=== PATIENT | female | born 1970 | race Caucasian/White ===

== ENCOUNTER 2017-07-30 17:35 | Inpatient (IN) | payer SELFPAY ==
[~2017-07-30] VITALS: Ht 147.3 cm; Wt 70.3 kg
[~2017-07-30 17:35] MED LIST: CLON.5; LEVA500T33; TRAM50TA PO
[2017-07-30 17:48] VITALS: BP 115/72; PULSE 118; RESP 20; TEMP 98.2; O2SAT 100
[2017-07-30 18:32] VITALS: BP 115/71; PULSE 120; RESP 19; O2SAT 100
[2017-07-30] MEDS ORDERED: EXCETAB31 (18:42)
[2017-07-30] MEDS ORDERED: IBUP1TAB7 PO (18:42)
[2017-07-30] MEDS ORDERED: GABA600T PO (18:42)
[2017-07-30] MEDS ORDERED: PRAM0.25 PO (18:42)
[2017-07-30] MEDS ORDERED: FURO40TA PO (18:42)
[2017-07-30] MEDS ORDERED: HYDR-3516 PO (18:42)
[2017-07-30] MEDS ORDERED: CYCL10TA PO (18:42)
[2017-07-30 19:08] LABS: AUTOMATED NEUTROPHIL # 24.2 TH/MM3 (1.8-7.7); BASOPHIL # 0.1 TH/MM3 (0-0.2); BASOPHIL % 0.5 % (0.0-2.0); EOSINOPHIL # 0.3 TH/MM3 (0-0.4); EOSINOPHIL % 1.2 % (0.0-4.0); HEMATOCRIT 35.2 % (35.0-46.0); HEMOGLOBIN 12.1 GM/DL (11.6-15.3); LYMPH % 3.5 % (9.0-44.0); LYMPHOCYTE # 0.9 TH/MM3 (1.0-4.8); MEAN CELL VOLUME 92.3 FL (80.0-100.0); MEAN CORPUSCULAR HEMOGLOBIN 31.8 PG (27.0-34.0); MEAN CORPUSCULAR HGB CONC 34.4 % (32.0-36.0); MEAN PLATELET VOLUME 8.4 FL (7.0-11.0); MONOCYTE # 0.8 TH/MM3 (0-0.9); NEUT % 91.8 % (16.0-70.0); PLATELET COUNT 239 TH/MM3 (150-450); RED BLOOD COUNT 3.81 MIL/MM3 (4.00-5.30); RED CELL DISTRIBUTION WIDTH 13.5 % (11.6-17.2); WHITE BLOOD COUNT 26.3 TH/MM3 (4.0-11.0)
[2017-07-30 19:15] LABS: INTERNATIONAL NORMALIZED RATIO 1.1 RATIO
[2017-07-30 19:24] LABS: BACTERIA, URINE OCC /hpf; BILIRUBIN, URINE NEG (NEG); BLOOD, URINE TRACE (NEG); GLUCOSE,URINE NEG (NEG); HYALINE CAST, URINE 5 /lpf (RARE); KETONE, URINE NEG (NEG); MUCUS URINE FEW /lpf (OCC); NITRITE,URINE NEG (NEG); PH, URINE 5.5 (5.0-8.5); SQUAMOUS EPITHELIAL CELL URINE 4 /hpf (0-5); URINE COLOR LIGHT-YELLOW (YELLW/STRAW); URINE LEUKOCYTE ESTERASE LARGE (NEG); WHITE BLOOD CELL CAST, URINE 10 /lpf
[2017-07-30 19:29] LABS: ALBUMIN 2.8 GM/DL (3.4-5.0); ALT (GPT) 67 U/L (10-53); AST (GOT) 61 U/L (15-37); BICARBONATE 26.8 MEQ/L (21.0-32.0); BLOOD UREA NITROGEN 37 MG/DL (7-18); CALCIUM 10.1 MG/DL (8.5-10.1); CHLORIDE 101 MEQ/L (98-107); CREATININE 3.14 MG/DL (0.50-1.00); GLOMERULAR FILTRATION RATE 16 ML/MIN (>89); GLUCOSE,RANDOM 87 MG/DL (74-106); SODIUM (NA) 137 MEQ/L (136-145)
[2017-07-30 19:32] LABS: ALKALINE PHOSPHATASE 234 U/L (45-117); TOTAL BILIRUBIN ADULT 0.3 MG/DL (0.2-1.0); TOTAL PROTEIN 8.4 GM/DL (6.4-8.2)
[2017-07-30] MEDS ORDERED: ACETAMINOPHEN 500 MG CPLT PO ONE (20:00)
[2017-07-30] MEDS ORDERED: SODIUM CHLOR 0.9% 1000 ML INJ 1,000 ML IV SCH (20:06)
--- NOTE | 2017-07-30 20:06 | PD ---
HPI Chief Complaint: General Weakness Time Seen by Provider: 18:51 Travel History International Travel<30 days: No Contact w/Intl Traveler<30days: No Traveled to known affect area: No History of Present Illness HPI 46-year-old female presents to the ED for evaluation of intermittent fevers, dull, frontal headache, abdominal pain, bloating, nausea and vomiting 4 days. She states that she measured a fever of 103 by oral thermometer 4 days ago. She denies cold or flu symptoms, chest pain, palpitations, shortness of breath. She denies melena, hematochezia. Endorses 1 episode of loose stools. She denies hematuria, dysuria, vaginal odor, discharge, back pain. She states that she is a social drinker, occasionally has a glass of wine, last alcoholic drink approximately 3 weeks ago. She endorses history of tubal ligation, denies risk of . Denies other abdominal surgery. No treatment attempted at home. 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) Headaches: Yes Hepatitis: No Hiatal Hernia: No Hypertension: No Immune Disorder: Yes Kidney Stones: No Musculoskeletal: No Neurologic: Yes (RLS) Reproductive: No Respiratory: Yes (ASTHMA) Myocardial Infarction: No Radiation Therapy: No Renal Failure: No Sickle Cell Disease: No Sleep Apnea: No Ulcer: No Tetanus Vaccination: > 5 Years Influenza Vaccination: No ?: Not LMP: on now : 5 Para: 3 Miscarriage: 2 : 0 Tubal Ligation: Yes Past Surgical History Abdominal Surgery: No AICD: No Appendectomy: No Arteriovenous Shunt: No Cardiac Surgery: No Cholecystectomy: No Ear Surgery: No Endocrine Surgery: No Eye Surgery: No Genitourinary Surgery: No Gynecologic Surgery: Yes (TUBAL; LIGATION) Insulin Pump: No Joint Replacement: No Neurologic Surgery: No Oral Surgery: No Pacemaker: No Thoracic Surgery: No Other Surgery: Yes (BROKEN PELVIS 1987) Social History Alcohol Use: No (STOP LAST OCTOBER) Tobacco Use: No Substance Use: Yes (MARIJUANA) Allergies-Medications (Allergen,Severity, Reaction): Coded Allergies: penicillin G (Unverified Allergy, Mild, 07/30/17) prochlorperazine (Unverified Allergy, Mild, [place], 07/30/17) ciprofloxacin (Verified Allergy, Unknown, 07/30/17) pecan nut (Verified Allergy, Unknown, 07/30/17) walnut (Verified Allergy, Unknown, 07/30/17) Reported Meds & Prescriptions Reported Meds & Active Scripts Active Reported Gabapentin 600 Mg Tab 600 Mg PO BID Pramipexole (Pramipexole Dihydrochloride) 0.25 Mg Tab 0.25 Mg PO HS Flexeril (Cyclobenzaprine HCl) 10 Mg Tab 10 Mg PO TID Hydrocodone-Acetaminophen 5-325 mg Tab 1 Tab PO Q6H PRN Furosemide 40 Mg Tab 40 Mg PO DAILY Excedrin Migraine Caplet (Aspirin/Acetaminophen/Caffeine) 250 Mg-250 Mg-65 Mg Tablet Ibuprofen 800 Mg Tab 800 Mg PO Q6HR PRN Review of Systems Except as stated in HPI: all other systems reviewed are Neg Physical Exam Narrative GENERAL: Well-nourished, well-developed anxious white female no acute distress. SKIN: Focused skin assessment warm/dry. HEAD: Normocephalic. EYES: No scleral icterus. No injection or drainage. NECK: Supple, trachea midline. No JVD or lymphadenopathy. No midline tenderness to palpation. Patient retains full, active, painless R OM. No nuchal rigidity. CARDIOVASCULAR: Regular rate and rhythm without murmurs, gallops, or rubs. RESPIRATORY: Breath sounds clear and equal bilaterally. No accessory muscle use. GASTROINTESTINAL: Abdomen soft, mildly distended, tender to palpation in the epigastric region as well as upper left and right quadrants. No palpable masses. No palpable hepatosplenomegaly. Active bowel sounds. No suprapubic tenderness. MUSCULOSKELETAL: No cyanosis, or edema. BACK: Nontender without obvious deformity. Positive left-sided CVA tenderness. Data Data Last Documented VS Vital Signs Date Time Temp Pulse Resp B/P (MAP) Pulse Ox O2 Delivery O2 Flow Rate FiO2 07/30/17 21:36 120 18 109/59 (76) 96 Room Air 07/30/17 20:20 98.0 Orders Orders Complete Blood Count With Diff (07/30/17 17:52) Comprehensive Metabolic Panel (07/30/17 17:52) Lipase (07/30/17 17:52) Prothrombin Time / Inr (Pt) (07/30/17 17:52) Act Partial Throm Time (Ptt) (07/30/17 17:52) Urinalysis - C+S If Indicated (07/30/17 17:52) Urine Culture (07/30/17 18:45) Ct Abd/Pel W/O Iv Contrast (07/30/17 19:52) Acetaminophen (Tylenol) (07/30/17 20:00) Iv Access Insert/Monitor (07/30/17 20:06) Ecg Monitoring (07/30/17 20:06) Oximetry (07/30/17 20:06) Morphine Inj (Morphine Inj) (07/30/17 20:15) Sodium Chlor 0.9% 1000 Ml Inj (Ns 1000 M (07/30/17 20:06) Sodium Chloride 0.9% Flush (Ns Flush) (07/30/17 20:15) Ondansetron Inj (Zofran Inj) (07/30/17 20:15) Lactic Acid Sepsis Protocol (07/30/17 20:09) Blood Culture (07/30/17 20:09) Ceftriaxone Inj (Rocephin Inj) (07/30/17 20:15) Sodium Chlor 0.9% 1000 Ml Inj (Ns 1000 M (07/30/17 20:15) Sepsis Workup Initiated (07/30/17 20:12) Admit Order (Ed Use Only) (07/30/17 21:35) Labs Laboratory Tests Test 07/30/17 18:45 07/30/17 20:30 White Blood Count 26.3 TH/MM3 Red Blood Count 3.81 MIL/MM3 Hemoglobin 12.1 GM/DL Hematocrit 35.2 % Mean Corpuscular Volume 92.3 FL Mean Corpuscular Hemoglobin 31.8 PG Mean Corpuscular Hemoglobin Concent 34.4 % Red Cell Distribution Width 13.5 % Platelet Count 239 TH/MM3 Mean Platelet Volume 8.4 FL Neutrophils (%) (Auto) 91.8 % Lymphocytes (%) (Auto) 3.5 % Monocytes (%) (Auto) 3.0 % Eosinophils (%) (Auto) 1.2 % Basophils (%) (Auto) 0.5 % Neutrophils # (Auto) 24.2 TH/MM3 Lymphocytes # (Auto) 0.9 TH/MM3 Monocytes # (Auto) 0.8 TH/MM3 Eosinophils # (Auto) 0.3 TH/MM3 Basophils # (Auto) 0.1 TH/MM3 CBC Comment DIFF FINAL Differential Comment Prothrombin Time 11.0 SEC Prothromb Time International Ratio 1.1 RATIO Activated Partial Thromboplast Time 31.1 SEC Urine Color LIGHT-YELLOW Urine Turbidity HAZY Urine pH 5.5 Urine Specific [place] 1.009 Urine Protein 30 mg/dL Urine Glucose (UA) NEG mg/dL Urine Ketones NEG mg/dL Urine Occult Blood TRACE Urine Nitrite NEG Urine Bilirubin NEG Urine Urobilinogen LESS THAN 2.0 MG/DL Urine Leukocyte Esterase LARGE Urine RBC 5 /hpf Urine WBC 39 /hpf Urine Squamous Epithelial Cells 4 /hpf Urine Bacteria OCC /hpf Urine Hyaline Casts 5 /lpf Urine White Blood Cell Casts 10 /lpf Urine Mucus FEW /lpf Microscopic Urinalysis Comment CULTURE INDICATED Blood Urea Nitrogen 37 MG/DL Creatinine 3.14 MG/DL Random Glucose 87 MG/DL Total Protein 8.4 GM/DL Albumin 2.8 GM/DL Calcium Level 10.1 MG/DL Alkaline Phosphatase 234 U/L Aspartate Amino Transf (AST/SGOT) 61 U/L Alanine Aminotransferase (ALT/SGPT) 67 U/L Total Bilirubin 0.3 MG/DL Sodium Level 137 MEQ/L Potassium Level 3.0 MEQ/L Chloride Level 101 MEQ/L Carbon Dioxide Level 26.8 MEQ/L Anion Gap 9 MEQ/L Estimat Glomerular Filtration Rate 16 ML/MIN Lipase 55 U/L Lactic Acid Level 1.1 mmol/L [facility] Medical Decision Making Medical Screen Exam Complete: Yes Emergency Medical Condition: Yes Differential Diagnosis pancreatitis versus cholecystitis versus pyelonephritis versus Narrative Course 46-year-old female presents to the ED for evaluation of intermittent fevers, dull, frontal headache, abdominal pain, bloating, nausea and vomiting 4 days. She states that she measured a fever of 103 by oral thermometer 4 days ago. Endorses 1 episode of loose stools. She denies hematuria, dysuria, vaginal odor , discharge, back pain. Denies chronic alcohol use. She endorses history of tubal ligation, currently menstruating. Denies other abdominal surgery. Patient is afebrile, pulse 118 on presentation. On exam this is a nontoxic- appearing white female in no acute distress. Chest is CTAB. Abdomen is tender in the epigastric region. She does have positive left-sided CVA tenderness. Exam is otherwise reassuring. IV was established. Patient was administered 1 L normal saline, 500 mg Tylenol, 4 mg Zofran, 4 mg morphine. CBC revealed a leukocytosis of 26.3, neutrophil predominant. Blood cultures and lactic acid were added to the workup. Patient was administered 1 g Rocephin IV. Coags are unremarkable. CMP with potassium 3.0. BUN 37, creatinine 3.14. Estimated GFR 16. AST 61, ALT 67. Patient endorses recent history of Cipro use, suspect this is the cause of the elevated LFTs. Lactic acid 1.1. Lipase 55. CT abdomen pelvis reveals mild perinephric edema without evidence of obstruction , nonspecific but pyelonephritis should be excluded clinically. Mild hepatomegaly, nonspecific. Mild atelectasis at both lung bases. Otherwise negative per radiology read. Patient meets severe sepsis criteria. I discussed the results of the workup with the patient. She is agreeable to admission for further evaluation. I discussed the patient with Dr. Ivory, medical scientific liaison who agrees to accept the patient to the medicine service under Dr. Gray. Please see medicine notes for disposition. Sepsis Criteria SIRS Criteria (2 or more): Heart rate over 90, WBC > 77193, < 4000 or > 10% bands Sepsis Criteria (SIRS+source): Infect source susp/known Severe Sepsis (+one): Organ Dysfunction Criteria Outcome: Meets severe sepsis criteria Syeda Dacosta Jul 30, 2017 20:06
[2017-07-30] MEDS ORDERED: SODIUM CHLOR 0.9% 1000 ML INJ 1,000 ML IV ONE (20:15)
[2017-07-30] MEDS ORDERED: ONDANSETRON HCL 4 MG/2 ML VIAL IV PUSH ONE (20:15)
[2017-07-30] MEDS ORDERED: MORPHINE SULFATE 4 MG/ML INJ IV PUSH ONE (20:15)
[2017-07-30] MEDS ORDERED: SODIUM CHLORIDE 0.9% FLUSH 10 ML FLUSH IV FLUSH PRN (20:15)
[2017-07-30] MEDS ORDERED: cefTRIAXone INJ 1,000 MG in SODIUM CHLORIDE 0.9% INJ 100 ML IV ONE (20:15)
[2017-07-30 20:20] VITALS: TEMP 98
--- NOTE | 2017-07-30 20:45 | RADRPT ---
EXAM DATE/TIME: 07/30/2017 20:25 [facility] COMPARISON: No previous studies available for comparison. INDICATIONS : Abdomen pain and distention. ORAL CONTRAST: No oral contrast ingested. RADIATION DOSE: 7.54 CTDIvol (mGy) MEDICAL HISTORY : Pelvic fracture. SURGICAL HISTORY : Tubal ligation. ENCOUNTER: Initial ACUITY: 1 day PAIN SCALE: 5/10 LOCATION: Bilateral abdomen. TECHNIQUE: Volumetric scanning of the abdomen and pelvis was performed. Using automated exposure control and ad justment of the mA and/or kV according to patient size, radiation dose was kept as low as reasonably achievable to obtain optimal diagnostic quality images. DICOM format image data is available electro nically for review and comparison. FINDINGS: LOWER LUNGS: Mild atelectasis at both bases. LIVER: Homogeneous density without lesion. 18.5 cm craniocaudal. There is no dilation of the biliary tree. No calcified gallstones. SPLEEN: Normal size without lesion. PANCREAS: Within normal limits. KIDNEYS: Normal in size and shape. There is no mass, stone, or hydronephrosis. Mild perinephric edema is pres ent. ADRENAL GLANDS: Within normal limits. VASCULAR: There is no aortic aneurysm. BOWEL/MESENTERY: The stomach, small bowel, and colon demonstrate no acute abnormality. There is no free intraperitone al air or fluid. Normal appendix. ABDOMINAL WALL: Within normal limits. RETROPERITONEUM: There is no lymphadenopathy. BLADDER: No wall thickening or mass. REPRODUCTIVE: Within normal limits. There is a tampon in vagina. No free fluid is present. INGUINAL: There is no lymphadenopathy or hernia. MUSCULOSKELETAL: Within normal limits for patient age. CONCLUSION: 1. Mild perinephric edema without evidence of obstruction, nonspecific but pyelonephritis should be e xcluded clinically. 2. Mild hepatomegaly, nonspecific. 3. Mild atelectasis at both lung bases. 4. Otherwise negative. Moses Byrd MD on July 30, 2017 at 20:40 Board Certified Radiologist. This report was verified electronically.
[2017-07-30 21:36] VITALS: BP 109/59; PULSE 120; RESP 18; O2SAT 96
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
[2017-07-30] MEDS ORDERED: BISACODYL 10 MG SUPP RECTAL PRN (22:15)
[2017-07-30] MEDS ORDERED: MAGNESIUM HYDROXIDE SUSP 30 ML CUP PO PRN (22:15)
[2017-07-30] MEDS ORDERED: NALOXONE HCL 0.4 MG/ML AMP IV PUSH PRN (22:15)
[2017-07-30] MEDS ORDERED: LACTULOSE SYRUP 20 GM/30 ML CUP PO PRN (22:15)
[2017-07-30] MEDS ORDERED: SENNOSIDES 8.6 MG TAB PO PRN (22:15)
[2017-07-30] MEDS ORDERED: MORPHINE SULFATE 2 MG/ML SYRINGE IV PUSH PRN (22:15)
[2017-07-30 22:20] VITALS: O2SAT 95
[2017-07-30] MEDS ORDERED: POTASSIUM CHLORIDE 10 MEQ CONTROLLED RELEASE TAB PO ONE (23:30)
[2017-07-30 23:39] VITALS: BP 104/57; PULSE 120; RESP 16; TEMP 98.4; O2SAT 98
[2017-07-31] VITALS (8 sets, daily range): BP systolic 104–148; BP diastolic 62–79; PULSE 111–134; RESP 16–22; TEMP 97.9–99.7; O2SAT 92–98
[2017-07-31] MEDS: SODIUM CHLOR 0.9% 1000 ML INJ 1,000 ML IV SCH ×4 (00:05→21:08)
[2017-07-31] MEDS ORDERED: IBUPROFEN 600 MG TAB PO PRN (03:15)
[2017-07-31] MEDS ORDERED: ACETAMINOPHEN 325 MG TAB PO PRN (03:15)
[2017-07-31] MEDS: ONDANSETRON HCL 4 MG/2 ML VIAL IVP PRN ×3 (04:31→18:47)
[2017-07-31] MEDS: TEMAZEPAM 15 MG CAP PO PRN (05:19)
[2017-07-31 06:58] LABS: ALBUMIN 1.9 GM/DL (3.4-5.0); ALKALINE PHOSPHATASE 175 U/L (45-117); ALT (GPT) 53 U/L (10-53); AST (GOT) 45 U/L (15-37); BLOOD UREA NITROGEN 36 MG/DL (7-18); CALCIUM 8.7 MG/DL (8.5-10.1); CHLORIDE 109 MEQ/L (98-107); CREATININE 2.65 MG/DL (0.50-1.00); GLOMERULAR FILTRATION RATE 19 ML/MIN (>89); GLUCOSE,RANDOM 77 MG/DL (74-106); SODIUM (NA) 141 MEQ/L (136-145); TOTAL BILIRUBIN ADULT 0.3 MG/DL (0.2-1.0)
[2017-07-31 07:09] LABS: AUTOMATED NEUTROPHIL # 13.1 TH/MM3 (1.8-7.7); BASOPHIL % 0.3 % (0.0-2.0); EOSINOPHIL # 0.2 TH/MM3 (0-0.4); EOSINOPHIL % 1.5 % (0.0-4.0); HEMOGLOBIN 10.8 GM/DL (11.6-15.3); LYMPH % 5.1 % (9.0-44.0); LYMPHOCYTE # 0.8 TH/MM3 (1.0-4.8); MEAN CELL VOLUME 94.2 FL (80.0-100.0); MEAN CORPUSCULAR HEMOGLOBIN 31.6 PG (27.0-34.0); MEAN CORPUSCULAR HGB CONC 33.6 % (32.0-36.0); MEAN PLATELET VOLUME 8.8 FL (7.0-11.0); MONO % 5.3 % (0.0-8.0); MONOCYTE # 0.8 TH/MM3 (0-0.9); NEUT % 87.8 % (16.0-70.0); PLATELET COUNT 166 TH/MM3 (150-450); RED CELL DISTRIBUTION WIDTH 14.1 % (11.6-17.2); WHITE BLOOD COUNT 14.9 TH/MM3 (4.0-11.0)
[2017-07-31] MEDS: cefTRIAXone INJ 1,000 MG in SODIUM CHLORIDE 0.9% INJ 100 ML IV SCH ×2 (08:12→20:39)
[2017-07-31] MEDS: SODIUM CHLORIDE 0.9% FLUSH 10 ML FLUSH IV FLUSH SCH ×2 (08:12→20:41)
[2017-07-31] MEDS: HEPARIN SODIUM - SQ 10,000 UNITS/ML VIAL SQ SCH ×2 (08:13→20:40)
[2017-07-31] MEDS: DOCUSATE SODIUM 50 MG/SENNA 8.6 MG TAB PO SCH ×2 (08:13→20:40)
[2017-07-31 08:57] LABS: BANDS 12 % (0-6); LYMPHOCYTES 6 % (9-44); MONOCYTES 6 % (0-8); NEUTROPHIL # MANUAL DIFF 12.8 TH/MM3 (1.8-7.7); POLYS (SEG NEUTROPHILS) 74 % (16-70)
[2017-07-31 08:58] LABS: TOXIC VACUOLATION PRESENT (NONE SEEN)
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
[2017-07-31] MEDS: CYCLOBENZAPRINE HCL 10 MG TAB PO SCH ×3 (11:42→20:40)
[2017-07-31] MEDS ORDERED: SYMB80AE INH (14:15)
[2017-07-31] MEDS ORDERED: SODIUM CHLOR 0.9% 1000 ML INJ 1,000 ML IV ONE ×2 (16:45)
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
--- NOTE | 2017-07-31 17:39 | RADRPT ---
EXAM DATE/TIME: 07/31/2017 16:57 [facility] COMPARISON: No previous studies available for comparison. INDICATIONS : Short of breath and back pain. MEDICAL HISTORY : None. SURGICAL HISTORY : Tubal ligation. ENCOUNTER: Subsequent ACUITY: 2 days PAIN SCORE: 7/10 LOCATION: Bilateral Back FINDINGS: Single AP view of the chest. Patchy atelectasis versus mild consolidation left lung base. Possible sm all left pleural effusion. Right lung clear. No evidence of pneumothorax. Cardiomediastinal silhouett e within normal limits. CONCLUSION: Patchy atelectasis versus mild consolidation left lung base. Possible small left pleural effusion. Jame Perea MD on July 31, 2017 at 17:36 Board Certified Radiologist. This report was verified electronically.
[2017-07-31 18:04] LABS: AUTOMATED NEUTROPHIL # 15.7 TH/MM3 (1.8-7.7); BASOPHIL % 0.2 % (0.0-2.0); EOSINOPHIL # 0.3 TH/MM3 (0-0.4); EOSINOPHIL % 1.7 % (0.0-4.0); HEMATOCRIT 29.2 % (35.0-46.0); HEMOGLOBIN 9.9 GM/DL (11.6-15.3); LYMPH % 3.8 % (9.0-44.0); LYMPHOCYTE # 0.7 TH/MM3 (1.0-4.8); MEAN CELL VOLUME 92.3 FL (80.0-100.0); MEAN CORPUSCULAR HEMOGLOBIN 31.2 PG (27.0-34.0); MEAN CORPUSCULAR HGB CONC 33.8 % (32.0-36.0); MEAN PLATELET VOLUME 8.1 FL (7.0-11.0); MONO % 6.7 % (0.0-8.0); MONOCYTE # 1.2 TH/MM3 (0-0.9); NEUT % 87.6 % (16.0-70.0); PLATELET COUNT 171 TH/MM3 (150-450); RED BLOOD COUNT 3.16 MIL/MM3 (4.00-5.30); RED CELL DISTRIBUTION WIDTH 14.2 % (11.6-17.2); WHITE BLOOD COUNT 17.9 TH/MM3 (4.0-11.0)
--- NOTE | 2017-07-31 21:45 | RADRPT ---
EXAM DATE/TIME: 07/31/2017 21:15 [facility] COMPARISON: CHEST SINGLE AP, July 31, 2017, 16:57. INDICATIONS : Chest pain with dyspnea. DOSE: 8.5 mCi Tc99m MAA IV 1.6 mCi Tc99m DTPA aerosol MEDICAL HISTORY : Hypertension. Asthma. SURGICAL HISTORY : Tubal ligation. ENCOUNTER: Initial ACUITY: 1 day PAIN SCALE: 5/10 LOCATION: Left chest TECHNIQUE: Following five minutes of tidal breathing of DTPA aerosol, planar images of the lungs were performed in eight projections. The patient was then injected with MAA, and eight-view perfusion scan was perf ormed. FINDINGS: Comparison radiograph shows mild consolidation and small effusion left lung base. There is a homogeneous pattern of aerosol delivery to the periphery of both lungs. No focal ventilat ory defects are seen. The perfusion lung scan demonstrates a homogenous pattern of uptake in both lungs. No segmental or s ubsegmental defects are seen. CONCLUSION: Homogeneous perfusion. Low probability study for pulmonary embolus. Moses Byrd MD on July 31, 2017 at 21:42 Board Certified Radiologist. This report was verified electronically.
[2017-08-01 00:11] VITALS: BP 137/72; PULSE 128; RESP 17; TEMP 100.3; O2SAT 93
[2017-08-01] MEDS: SODIUM CHLOR 0.9% 1000 ML INJ 1,000 ML IV SCH ×4 (02:33→16:17)
[2017-08-01 03:35] VITALS: BP 112/55; PULSE 133; RESP 16; TEMP 100.3; O2SAT 90
[2017-08-01] MEDS: TEMAZEPAM 15 MG CAP PO PRN (03:41)
[2017-08-01] MEDS: ONDANSETRON HCL 4 MG/2 ML VIAL IVP PRN ×2 (03:41→20:50)
[2017-08-01 04:41] LABS: AUTOMATED NEUTROPHIL # 15.7 TH/MM3 (1.8-7.7); BASOPHIL # 0.1 TH/MM3 (0-0.2); BASOPHIL % 0.3 % (0.0-2.0); EOSINOPHIL # 0.1 TH/MM3 (0-0.4); EOSINOPHIL % 0.7 % (0.0-4.0); HEMOGLOBIN 9.5 GM/DL (11.6-15.3); LYMPH % 5.8 % (9.0-44.0); LYMPHOCYTE # 1.1 TH/MM3 (1.0-4.8); MEAN CELL VOLUME 91.2 FL (80.0-100.0); MEAN CORPUSCULAR HEMOGLOBIN 30.9 PG (27.0-34.0); MEAN CORPUSCULAR HGB CONC 33.9 % (32.0-36.0); MEAN PLATELET VOLUME 7.8 FL (7.0-11.0); MONO % 9.3 % (0.0-8.0); MONOCYTE # 1.7 TH/MM3 (0-0.9); NEUT % 83.9 % (16.0-70.0); PLATELET COUNT 181 TH/MM3 (150-450); RED BLOOD COUNT 3.07 MIL/MM3 (4.00-5.30); RED CELL DISTRIBUTION WIDTH 14.4 % (11.6-17.2); WHITE BLOOD COUNT 18.7 TH/MM3 (4.0-11.0)
[2017-08-01 05:00] LABS: ALBUMIN 1.6 GM/DL (3.4-5.0); ALT (GPT) 32 U/L (10-53); AST (GOT) 19 U/L (15-37); BICARBONATE 20.2 MEQ/L (21.0-32.0); BLOOD UREA NITROGEN 33 MG/DL (7-18); CALCIUM 8.5 MG/DL (8.5-10.1); CHLORIDE 111 MEQ/L (98-107); CREATININE 2.21 MG/DL (0.50-1.00); GLOMERULAR FILTRATION RATE 24 ML/MIN (>89); GLUCOSE,RANDOM 105 MG/DL (74-106); SODIUM (NA) 141 MEQ/L (136-145)
[2017-08-01 05:03] LABS: ALKALINE PHOSPHATASE 182 U/L (45-117); TOTAL BILIRUBIN ADULT 0.3 MG/DL (0.2-1.0); TOTAL PROTEIN 5.6 GM/DL (6.4-8.2)
[2017-08-01 07:01] LABS: BANDS 8 % (0-6); BASOPHILS 1 % (0-2); LYMPHOCYTES 1 % (9-44); MONOCYTES 5 % (0-8); MYELOCYTES 1 % (0-0); NEUTROPHIL # MANUAL DIFF 17.2 TH/MM3 (1.8-7.7); POLYS (SEG NEUTROPHILS) 83 % (16-70)
[2017-08-01 07:03] LABS: BURR CELLS 1+ (NORMAL)
[2017-08-01] MEDS: CYCLOBENZAPRINE HCL 10 MG TAB PO SCH ×3 (07:23→20:52)
[2017-08-01 07:39] VITALS: BP 127/79; PULSE 122; RESP 18; TEMP 98.9; O2SAT 95
[2017-08-01 08:11] VITALS: PULSE 122
[2017-08-01] MEDS: SODIUM CHLORIDE 0.9% FLUSH 10 ML FLUSH IV FLUSH SCH ×2 (08:28→20:53)
[2017-08-01] MEDS: DOCUSATE SODIUM 50 MG/SENNA 8.6 MG TAB PO SCH ×2 (08:32→20:53)
[2017-08-01] MEDS: HEPARIN SODIUM - SQ 10,000 UNITS/ML VIAL SQ SCH ×2 (08:32→20:56)
--- NOTE | 2017-08-01 09:08 | EKG ---
Date Performed: 07/31/2017 Time Performed: 17:15:46 PTAGE: 46 years EKG: SINUS TACHYCARDIA NONSPECIFIC T-WAVE ABNORMALITY ABNORMAL RHYTHM ECG NO PREVIOUS TRACING DOCTOR: Carlos Umana Interpretating Date/Time 08/01/2017 09:06:50
[2017-08-01] MEDS: cefTRIAXone INJ 1,000 MG in SODIUM CHLORIDE 0.9% INJ 100 ML IV SCH (10:40)
[2017-08-01] MEDS ORDERED: POTASSIUM CHLORIDE 10 MEQ CONTROLLED RELEASE TAB PO ONE (10:45)
--- NOTE | 2017-08-01 11:04 | RADRPT ---
EXAM DATE/TIME: 08/01/2017 10:25 [facility] COMPARISON: No previous studies available for comparison. INDICATIONS : Short of breath. MEDICAL HISTORY : None. SURGICAL HISTORY : Tubal ligation. ENCOUNTER: Subsequent ACUITY: 3 days PAIN SCORE: 0/10 LOCATION: Bilateral chest FINDINGS: The heart and mediastinal structures are normal. Bibasilar streakiness is noted consistent with atele ctasis and/or infiltrates. CONCLUSION: Bibasilar streakiness consistent with atelectasis and/or infiltrates. Travis Barrios MD on August 01, 2017 at 11:01 Board Certified Radiologist. This report was verified electronically.
--- NOTE | 2017-08-01 11:29 | HHI.FPPN ---
Subjective Remarks Overnight had some shortness of breath, now improved. Headache improved. Abdominal pain improved. No dysuria. Still having chills. (Jack Thrasher MD R2) Objective Vitals Vital Signs Date Time Temp Pulse Resp B/P (MAP) Pulse Ox O2 Delivery O2 Flow Rate FiO2 08/01/17 07:39 98.9 122 18 127/79 (95) 95 08/01/17 03:45 18 08/01/17 03:35 100.3 133 16 112/55 (74) 90 08/01/17 00:11 100.3 128 17 137/72 (93) 93 07/31/17 19:03 99.7 123 16 129/79 (96) 97 07/31/17 16:27 99.2 134 22 148/68 (94) 92 07/31/17 16:10 99.3 128 20 124/70 (88) 92 07/31/17 13:12 97.9 112 18 115/62 (79) 94 I/O 07/31/17 07/31/17 07/31/17 08/01/17 08/01/17 08/01/17 07:00 15:00 23:00 07:00 15:00 23:00 Intake Total 1500 ml 200 ml Balance 1500 ml 200 ml Intake Oral 500 ml 200 ml IV Total 1000 ml # Voids 2 1 (Jack Thrasher MD R2) Result Diagram: 08/01/1742108/01/17421 Objective Remarks GEN: WDWN adult white female sitting up in bed appearing anxious, feverish, but in NAD Skin: Warm and dry CV: Tachycardic with regular rhythm. Normal S1/S2, no MRG Lungs: CTAB. Mildly diminished breath sounds left base. No crackles or wheezes. MSK: No peripheral cyanosis or edema Neuro: Awake, alert, oriented x3. Moves all extremities without difficulty. CN II-XII grossly intact. Normal speech. Medications and IVs Current Medications Medications (Trade) Dose Ordered Sig/Rosalie Route Start Time Stop Time Status Last Admin Sodium Chloride 1,000 ml @ 150 mls/hr Q6H40M IV 07/30/17 23:00 08/01/17 10:48 (NS Flush) 2 ml UNSCH PRN IV FLUSH 07/30/17 22:15 (NS Flush) 2 ml BID IV FLUSH 07/31/17 09:00 07/31/17 20:41 (Zofran Inj) 4 mg Q6H PRN IVP 07/30/17 22:15 08/01/17 03:41 (Restoril) 15 mg HS PRN PO 07/30/17 22:15 08/01/17 03:41 (Heparin Inj) 5,000 units Q12H SQ 07/31/17 09:00 08/01/17 08:32 (Narcan Inj) 0.4 mg UNSCH PRN IV PUSH 07/30/17 22:15 (Lea-Colace) 1 tab BID PO 07/31/17 09:00 07/31/17 20:40 (Milk Of Magnesia Liq) 30 ml Q12H PRN PO 07/30/17 22:15 (Senokot) 17.2 mg Q12H PRN PO 07/30/17 22:15 (Dulcolax Supp) 10 mg DAILY PRN RECTAL 07/30/17 22:15 (Lactulose Liq) 30 ml DAILY PRN PO 07/30/17 22:15 Ceftriaxone Sodium 1000 mg/ Sodium Chloride 100 ml @ 200 mls/hr Q12H IV 07/31/17 09:00 08/01/17 10:40 (Tylenol) 650 mg Q6H PRN PO 07/31/17 03:15 07/31/17 03:38 (Flexeril) 5 mg Q8HR PO 07/31/17 10:45 08/01/17 13:07 (Roxicodone) 5 mg Q6H PRN PO 07/31/17 10:45 08/01/17 02:32 (Jack Thrasher MD R2) A/P Assessment and Plan 46-year-old female with: (Jack Thrasher MD R2) Attending Attestation Patient seen and examined. Case reviewed and discussed Agree with plan of care as discussed with me and documented in the resident note. (Venus Gray MD) Problem List: (1) Severe sepsis ICD Codes: A41.9 - Sepsis, unspecified organism; R65.20 - Severe sepsis without septic shock Status: Acute Plan: Currently stable, although still having chills and spiked fever overnight. End organ dysfunction. Suspected source pyelonephritis. Blood culture growing GNR UCx growing E coli sensitive to Rocephin Patient met criteria for severe sepsis with elevated heart rate, white blood cell count 26 Lactic acid reassuring at 1.1 -Continue Rocephin 1 g every 12 hours -Repeat BCx -Check echocardiogram to r/o endocarditis -Normal saline 150 mL/h -Repeat labs in the morning (2) Pyelonephritis ICD Codes: N12 - Tubulo-interstitial nephritis, not specified as acute or chronic Status: Acute Plan: See above (3) Sinus tachycardia ICD Codes: R00.0 - Tachycardia, unspecified Status: Acute Plan: Tachycardic since admission Initially thought due solely to sepsis, but likely by now would have resolved if so V/Q negative for PE in low risk patient EKG with sinus tachycardia CXR findings as above, possible CAP but more likely pleural effusion from renal inflammation -Check UDS to r/o withdrawal syndrome -Check flu antigen -Expand sepsis work-up as above (4) TAVO (acute kidney injury) ICD Codes: N17.9 - Acute kidney failure, unspecified Status: Acute Plan: Improving with IV fluids Careful with nephrotoxic agents Continue fluid resuscitation as above (5) Restless leg ICD Codes: G25.81 - Restless legs syndrome Status: Chronic Plan: Holding home medication at this time (6) Fibromyalgia ICD Codes: M79.7 - Fibromyalgia Status: Chronic Plan: Holding home medication at this time pending clinical improvement (7) Edema ICD Codes: R60.9 - Edema, unspecified Status: Chronic Plan: Holding home Lasix given TAVO Patient likely does not need to be on Lasix for this issue (8) FEN/PPX Status: Acute Plan: Fluids: Continue normal saline 150 mL/h Electrolytes: Monitor and replete PRN Nutrition: Regular diet Prophylaxis: Heparin Dispo: Pending resolution of TAVO, culture results (Jack Thrasher MD R2) Problem Qualifiers (1) Edema: Qualified Codes: R60.9 - Edema, unspecified Jack Thrasher MD R2 Aug 01, 2017 11:28 Venus Gray MD Aug 03, 2017 13:25
[2017-08-01 12:45] VITALS: BP 120/65; PULSE 120; RESP 18; TEMP 98.8; O2SAT 95
[2017-08-01 16:30] VITALS: PULSE 119; RESP 18; TEMP 100.2; O2SAT 100
[2017-08-01] MEDS ORDERED: Vancomycin Consult Pharmacy 1 EA OTHER SCH (18:00)
[2017-08-01] MEDS ORDERED: VANCOMYCIN 1,000 MG/NS 250 ML IV ONE ×2 (20:00)
--- NOTE | 2017-08-01 20:04 | RADRPT ---
EXAM DATE/TIME: 08/01/2017 19:46 [facility] COMPARISON: CT ABDOMEN & PELVIS W/O CONTRAST, July 30, 2017, 20:25. INDICATIONS : Flank pain. ORAL CONTRAST: No oral contrast ingested. RADIATION DOSE: 14.70 CTDIvol (mGy) MEDICAL HISTORY : Cardiovascular disease. SURGICAL HISTORY : Tubal ligation. ENCOUNTER: Initial ACUITY: 1 day PAIN SCALE: 7/10 LOCATION: Bilateral flank TECHNIQUE: Volumetric scanning of the abdomen was performed. Using automated exposure control and adjustment of the mA and/or kV according to patient size, radiation dose was kept as low as reasonably achievable to obtain optimal diagnostic quality images. DICOM format image data is available electronically for review and comparison. FINDINGS: LOWER LUNGS: Small to moderate bilateral pleural effusions have developed and with associated left greater than ri ght atelectasis. LIVER: Homogeneous density without lesion. There is no dilation of the biliary tree. No calcified gallston es. SPLEEN: Normal size without lesion. PANCREAS: Within normal limits. KIDNEYS: Persistent perinephric edema and now appears to be left worse than right. I believe the left kidney i s also a little more swollen in the interim. No hydronephrosis demonstrated. No stones are seen. ADRENAL GLANDS: Within normal limits. AORTA/RETROPERITONEAL: There is no aneurysm or lymphadenopathy. BOWEL/MESENTERY: The stomach and visualized small and large bowel demonstrate no abnormality. A mzcru-zf-ifbvtnth hiat al hernia is again noted. MUSCULOSKELETAL: Within normal limits for patient age. CONCLUSION: 1. Swelling and edema of the left kidney without hydronephrosis or upper hydroureter or perceptible s tone. Findings are of concern for left pyelonephritis in the proper clinical setting. 2. Effusions and consolidation of the visualized lung bases, new/worse. Moses Byrd MD on August 01, 2017 at 19:58 Board Certified Radiologist. This report was verified electronically.
[2017-08-01] MEDS ORDERED: MORPHINE SULFATE 2 MG/ML SYRINGE IV PUSH PRN (20:30)
[2017-08-01] MEDS: metroNIDAZOLE 500 MG INJ 100 ML IV SCH (20:42)
[2017-08-01] MEDS ORDERED: AZITHROMYCIN INJ 500 MG in SODIUM CHLOR 0.9% 250 ML INJ 250 ML IV SCH (21:30)
[2017-08-01] MEDS ORDERED: SODIUM CHLOR 0.9% 1000 ML INJ 1,000 ML IV ONE (21:30)
[2017-08-01] MEDS: CEFEPIME INJ 2,000 MG in SODIUM CHLORIDE 0.9% INJ 100 ML IV SCH (21:51)
[2017-08-02] VITALS (10 sets, daily range): BP systolic 130–162; BP diastolic 67–84; PULSE 102–120; RESP 18–20; TEMP 98–100.4; O2SAT 97–100
[2017-08-02] MEDS: ONDANSETRON HCL 4 MG/2 ML VIAL IVP PRN ×3 (02:55→20:40)
[2017-08-02] MEDS: CYCLOBENZAPRINE HCL 10 MG TAB PO SCH ×3 (05:53→22:42)
[2017-08-02] MEDS: metroNIDAZOLE 500 MG INJ 100 ML IV SCH ×2 (05:53→13:39)
[2017-08-02 07:43] LABS: AUTOMATED NEUTROPHIL # 11.5 TH/MM3 (1.8-7.7); BASOPHIL % 0.2 % (0.0-2.0); EOSINOPHIL # 0.2 TH/MM3 (0-0.4); EOSINOPHIL % 1.2 % (0.0-4.0); HEMOGLOBIN 9.7 GM/DL (11.6-15.3); LYMPH % 9.4 % (9.0-44.0); LYMPHOCYTE # 1.4 TH/MM3 (1.0-4.8); MEAN CELL VOLUME 92.7 FL (80.0-100.0); MEAN CORPUSCULAR HEMOGLOBIN 31.1 PG (27.0-34.0); MEAN CORPUSCULAR HGB CONC 33.5 % (32.0-36.0); MEAN PLATELET VOLUME 7.9 FL (7.0-11.0); MONO % 9.8 % (0.0-8.0); MONOCYTE # 1.4 TH/MM3 (0-0.9); NEUT % 79.4 % (16.0-70.0); PLATELET COUNT 191 TH/MM3 (150-450); RED BLOOD COUNT 3.13 MIL/MM3 (4.00-5.30); RED CELL DISTRIBUTION WIDTH 14.2 % (11.6-17.2); WHITE BLOOD COUNT 14.5 TH/MM3 (4.0-11.0)
[2017-08-02 08:08] LABS: ALBUMIN 1.5 GM/DL (3.4-5.0); ALKALINE PHOSPHATASE 165 U/L (45-117); ALT (GPT) 23 U/L (10-53); AST (GOT) 14 U/L (15-37); BICARBONATE 19.3 MEQ/L (21.0-32.0); BLOOD UREA NITROGEN 23 MG/DL (7-18); CALCIUM 8.1 MG/DL (8.5-10.1); CHLORIDE 112 MEQ/L (98-107); CREATININE 1.64 MG/DL (0.50-1.00); GLOMERULAR FILTRATION RATE 33 ML/MIN (>89); GLUCOSE,RANDOM 78 MG/DL (74-106); SODIUM (NA) 142 MEQ/L (136-145); TOTAL BILIRUBIN ADULT 0.4 MG/DL (0.2-1.0); TOTAL PROTEIN 5.5 GM/DL (6.4-8.2)
[2017-08-02] MEDS ORDERED: POTASSIUM CHLORIDE 10 MEQ CONTROLLED RELEASE TAB PO ONE ×2 (08:30→14:15)
[2017-08-02 08:35] LABS: BANDS 6 % (0-6); LYMPHOCYTES 11 % (9-44); METAMYELOCYTES 2 % (0-1); MONOCYTES 4 % (0-8); NEUTROPHIL # MANUAL DIFF 12.2 TH/MM3 (1.8-7.7); POLYS (SEG NEUTROPHILS) 76 % (16-70)
[2017-08-02 08:37] LABS: DOHLE BODIES PRESENT (NONE SEEN); TOXIC GRANULATION 1+ (NORMAL)
--- NOTE | 2017-08-02 08:39 | HHI.FPPN ---
Subjective Remarks Yesterday evening patient was more confused. Had been spiking fevers to 100.3, 100.4 overnight. Broadened antibiotic coverage to cover for renal abscess and possible meningitis or pneumonia. Had severe headache overnight (has been happening intermittently since admission but overnight had severe exacerbation) . Slightly SOB this morning. Pain in right breast. Pleuritic chest pain. No cough. Still feeling persistent chills. (Jack Thrasher MD R2) Objective Vitals Vital Signs Date Time Temp Pulse Resp B/P (MAP) Pulse Ox O2 Delivery O2 Flow Rate FiO2 08/02/17 03:40 98.3 102 19 131/77 (95) 100 08/02/17 00:15 100.4 120 20 140/67 (91) 97 08/01/17 16:30 100.2 119 18 100 08/01/17 12:45 98.8 120 18 120/65 (83) 95 I/O 08/01/17 08/01/17 08/01/17 08/02/17 08/02/17 08/02/17 07:00 15:00 23:00 07:00 15:00 23:00 Intake Total 200 ml 600 ml 450 ml Balance 200 ml 600 ml 450 ml Intake Oral 200 ml 600 ml 450 ml # Voids 3 4 # Bowel Movements 0 (Jack Thrasher MD R2) Result Diagram: 08/02/17 0602 08/02/17 0602 Imaging Last Impressions Chest X-Ray 08/01/17 0000 Signed Impressions: Service Date/Time: Tuesday, August 01, 2017 10:25 - CONCLUSION: Bibasilar streakiness consistent with atelectasis and/or infiltrates. Travis Brarios MD Abdomen CT 08/01/17 0000 Signed Impressions: Service Date/Time: Tuesday, August 01, 2017 19:46 - CONCLUSION: 1. Swelling and edema of the left kidney without hydronephrosis or upper hydroureter or perceptible stone. Findings are of concern for left pyelonephritis in the proper clinical setting. 2. Effusions and consolidation of the visualized lung bases, new/worse. Moses Byrd MD Renal Ultrasound 07/31/17 0000 Signed Impressions: Service Date/Time: Monday, July 31, 2017 08:45 - CONCLUSION: 1. Subtle right-sided hydronephrosis without definite etiology on ultrasound. This finding is somewhat nonspecific and may reflect resolving hydronephrosis, developing hydronephrosis or reflux. 2. Normal sonographic appearance of the left kidney. Mauri Lowery MD Lung Scan-VQ Nuclear Medicine 07/31/17 Signed Impressions: Service Date/Time: Monday, July 31, 2017 21:15 - CONCLUSION: Homogeneous perfusion. Low probability study for pulmonary embolus. Moses Byrd MD Abdomen/Pelvis CT 07/30/171951 Signed Impressions: Service Date/Time: Sunday, July 30, 2017 20:25 - CONCLUSION: 1. Mild perinephric edema without evidence of obstruction, nonspecific but pyelonephritis should be excluded clinically. 2. Mild hepatomegaly, nonspecific. 3. Mild atelectasis at both lung bases. 4. Otherwise negative. Moses Byrd MD Objective Remarks GEN: WDWN adult white female sitting up in bed appearing ill but in no acute distress Skin: Skin hot and dry. CV: Tachycardic with regular rhythm. Normal S1/S2, no MRG Lungs: Bibasilar crackles. Normal rate and effort. MSK: No peripheral cyanosis or edema Neuro: Awake, alert, oriented x3. Moves all extremities without difficulty. CN II-XII grossly intact. Normal speech. Medications and IVs Last Impressions Chest X-Ray 08/01/17 Signed Impressions: Service Date/Time: Tuesday, August 01, 2017 10:25 - CONCLUSION: Bibasilar streakiness consistent with atelectasis and/or infiltrates. Travis Barrios MD Abdomen CT 08/01/17 Signed Impressions: Service Date/Time: Tuesday, August 01, 2017 19:46 - CONCLUSION: 1. Swelling and edema of the left kidney without hydronephrosis or upper hydroureter or perceptible stone. Findings are of concern for left pyelonephritis in the proper clinical setting. 2. Effusions and consolidation of the visualized lung bases, new/worse. Moses Byrd MD Renal Ultrasound 07/31/17 Signed Impressions: Service Date/Time: Monday, July 31, 2017 08:45 - CONCLUSION: 1. Subtle right-sided hydronephrosis without definite etiology on ultrasound. This finding is somewhat nonspecific and may reflect resolving hydronephrosis, developing hydronephrosis or reflux. 2. Normal sonographic appearance of the left kidney. Mauri Lowery MD Lung Scan-VQ Nuclear Medicine 07/31/17 0000 Signed Impressions: Service Date/Time: Monday, July 31, 2017 21:15 - CONCLUSION: Homogeneous perfusion. Low probability study for pulmonary embolus. Moses Byrd MD Abdomen/Pelvis CT 07/30/17 1952 Signed Impressions: Service Date/Time: Sunday, July 30, 2017 20:25 - CONCLUSION: 1. Mild perinephric edema without evidence of obstruction, nonspecific but pyelonephritis should be excluded clinically. 2. Mild hepatomegaly, nonspecific. 3. Mild atelectasis at both lung bases. 4. Otherwise negative. Moses Byrd MD (Jack Thrasher MD R2) A/P Assessment and Plan 46-year-old female with: (Jack Thrasher MD R2) Attending Attestation Patient seen and examined. Case reviewed and discussed Agree with plan of care as discussed with me and documented in the resident note. (Venus Gray MD) Problem List: (1) Severe sepsis ICD Codes: A41.9 - Sepsis, unspecified organism; R65.20 - Severe sepsis without septic shock Status: Acute Plan: Currently stable, although still having chills and spiked fever overnight. End organ dysfunction, now improving Suspected source pyelonephritis, however with persistent spikes in fever and headaches, concerned for meningitis. Pleuritic chest pain and basilar infiltrate on CXR / CT also raises concern for pneumonia No STD symptoms, in monogamous relationship for last year, does not use condoms No contact with prisoners or travellers, no recent travel Blood culture growing GNR Repeat BCx NGTD x1 UCx growing E coli huang-sensitive Flu negative Legionella / pneumococcal antigen negative Lactic acid reassuring at 1.1 -Switched antibiotic coverage to Cefepime, Vancomycin, Flagyl, Azithromycin -Consult infectious disease for tailoring of regimen, length of treatment recs, evaluation of need for LP -Check echocardiogram to r/o endocarditis -Normal saline 150 mL/h -Repeat labs in the morning (2) Pyelonephritis ICD Codes: N12 - Tubulo-interstitial nephritis, not specified as acute or chronic Status: Acute Plan: See above (3) Sinus tachycardia ICD Codes: R00.0 - Tachycardia, unspecified Status: Acute Plan: Tachycardic since admission Initially thought due solely to sepsis, but likely by now would have resolved if so -Slight reduction in HR since broadening Abx V/Q negative for PE in low risk patient EKG with sinus tachycardia CXR findings as above, possible CAP but more likely pleural effusion from renal inflammation UDS negative -Continue IV hydration (4) TAVO (acute kidney injury) ICD Codes: N17.9 - Acute kidney failure, unspecified Status: Acute Plan: Improving with IV fluids Renally dose meds Continue fluid resuscitation as above (5) Restless leg ICD Codes: G25.81 - Restless legs syndrome Status: Chronic Plan: Holding home medication at this time (6) Fibromyalgia ICD Codes: M79.7 - Fibromyalgia Status: Chronic Plan: Holding home medication at this time pending clinical improvement Oxycodone and morphine PRN for severe and breakthrough pain, respectively (7) Edema ICD Codes: R60.9 - Edema, unspecified Status: Chronic Plan: Holding home Lasix given TAVO Patient likely does not need to be on Lasix for this issue (8) FEN/PPX Status: Acute Plan: Fluids: Continue normal saline 150 mL/h Electrolytes: Monitor and replete PRN Nutrition: Regular diet Prophylaxis: Heparin Dispo: Pending resolution of sepsis (Jack Thrasher MD R2) Problem Qualifiers (1) Edema: Qualified Codes: R60.9 - Edema, unspecified Jack Thrasher MD R2 Aug 02, 2017 08:39 Venus Gray MD Aug 03, 2017 13:24
[2017-08-02] MEDS: DOCUSATE SODIUM 50 MG/SENNA 8.6 MG TAB PO SCH ×2 (09:00→20:46)
[2017-08-02] MEDS: HEPARIN SODIUM - SQ 10,000 UNITS/ML VIAL SQ SCH (09:16)
[2017-08-02] MEDS: SODIUM CHLORIDE 0.9% FLUSH 10 ML FLUSH IV FLUSH SCH ×2 (09:16→20:46)
[2017-08-02] MEDS: SODIUM CHLOR 0.9% 1000 ML INJ 1,000 ML IV SCH ×3 (09:18→22:48)
[2017-08-02] MEDS: CEFEPIME INJ 2,000 MG in SODIUM CHLORIDE 0.9% INJ 100 ML IV SCH (09:19)
[2017-08-02] MEDS ORDERED: VANCOMYCIN INJ 1,250 MG in SODIUM CHLOR 0.9% 250 ML INJ 250 ML IV SCH (12:00)
--- NOTE | 2017-08-02 12:11 | ECHRPT ---
Indication: POSS SEPSIS, ENDOCARDITIS CONCLUSIONS Normal left ventricular size. Wall thickness is normal. The left ventricular systolic function is hyperdynamic with an estimated ejection fraction in the ra nge of 65- 70%. No atrial level shunt is demonstrated by color flow Doppler interrogation. Trace mitral valve regurgitation. There is mild tricuspid valve regurgitation. There is estimated fcmamzrg-vx-cjztlt pulmonary hypertension present (range 60-70 mmHg). The estimated pulmonary arterial pressure is 68.7 mmHg. A right sided pleural effusion is present. BP: 131 / 77 HR: 102 Rhythm: Sinus MEASUREMENTS (Male / Female) Normal Values Technical Quality:Fair 2D ECHO LV Diastolic Diameter PLAX 4.3 cm 4.2 - 5.9 / 3.9 - 5.3 cm LV Systolic Diameter PLAX 2.9 cm IVS Diastolic Thickness 0.9 cm 0.6 - 1.0 / 0.6 - 0.9 cm LVPW Diastolic Thickness 0.9 cm 0.6 - 1.0 / 0.6 - 0.9 cm LV Relative Wall Thickness 0.4 RV Internal Dim ED PLAX 2.9 cm LVOT Diameter 1.7 cm Aortic Root Diameter 2.7 cm LA Systolic Diameter LX 3.0 cm 3.0 - 4.0 / 2.7 - 3.8 cm M-MODE AV Cusp Separation MM 1.5 cm DOPPLER AV Peak Velocity 177.0 cm/s AV Peak Gradient 12.5 mmHg AV Mean Gradient 6.0 mmHg AV Velocity Time Integral 26.5 cm LVOT Peak Velocity 123.0 cm/s LVOT Peak Gradient 6.1 mmHg LVOT Velocity Time Integral 19.3 cm AV Area Cont Eq vti 1.7 cm AV Area Cont Eq pk 1.6 cm Mitral E Point Velocity 107.0 cm/s Mitral A Point Velocity 66.6 cm/s Mitral E to A Ratio 1.6 LV E' Lateral Velocity 17.3 cm/s Mitral E to LV E' Lateral Ratio 6.2 LV E' Septal Velocity 12.7 cm/s Mitral E to LV E' Septal Ratio 8.4 TR Peak Velocity 383.0 cm/s TR Peak Gradient 58.7 mmHg Right Atrial Pressure 10.0 mmHg Pulmonary Artery Systolic Pressu 68.7 mmHg Right Ventricular Systolic Press 68.7 mmHg PV Peak Velocity 100.0 cm/s PV Peak Gradient 4.0 mmHg FINDINGS LEFT VENTRICLE Normal left ventricular size. Wall thickness is normal. The left ventricular systolic function is hyperdynamic with an estimated ejection fraction in the ra nge of 65- 70%. RIGHT VENTRICLE Normal right ventricular size and systolic function. LEFT ATRIUM The left atrial size is normal. RIGHT ATRIUM The right atrial size is normal. ATRIAL SEPTUM No atrial level shunt is demonstrated by color flow Doppler interrogation. AORTA The aortic root and proximal ascending aorta are normal in size on limited imaging. MITRAL VALVE Structurally normal mitral valve. Trace mitral valve regurgitation. AORTIC VALVE Trileaflet aortic valve. No aortic valve stenosis or regurgitation. TRICUSPID VALVE There is mild tricuspid valve regurgitation. There is estimated omcvjmrz-vj-phbycg pulmonary hypertension present (range 60-70 mmHg). The estimated pulmonary arterial pressure is 68.7 mmHg. PULMONARY VALVE No pulmonary valve regurgitation or stenosis. VESSELS The inferior vena cava is normal in size. PERICARDIUM No pericardial effusion. A right sided pleural effusion is present. Carlos Umana MD, FACC (Electronically Signed) Final Date:02 August 2017 12:10
--- NOTE | 2017-08-02 16:36 | HHI.FPPN ---
Addendum to progress note ADDENDUM Reason for addendum: Additonal documentation Additional information Lumbar puncture ordered today however it was discovered patient had taken Excedrin 2 days ago. This requires a 5 day hold due to risk of bleeding. LP reschedule for Sunday. (Álvaro Belle MD, R1) Álvaro Belle MD, R1 Aug 02, 2017 16:36 Venus Gray MD Aug 03, 2017 13:22
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
[2017-08-02] MEDS: cefTRIAXone INJ 2,000 MG in SODIUM CHLORIDE 0.9% INJ 100 ML IV SCH (18:30)
[2017-08-03] VITALS (7 sets, daily range): BP systolic 122–136; BP diastolic 64–72; PULSE 88–107; RESP 18; TEMP 97.3–98.8; O2SAT 96–100
[2017-08-03] MEDS: TEMAZEPAM 15 MG CAP PO PRN ×2 (00:22→23:51)
[2017-08-03] MEDS: CYCLOBENZAPRINE HCL 10 MG TAB PO SCH ×3 (05:06→21:43)
[2017-08-03] MEDS: ONDANSETRON HCL 4 MG/2 ML VIAL IVP PRN ×3 (05:09→19:03)
[2017-08-03] MEDS: SODIUM CHLOR 0.9% 1000 ML INJ 1,000 ML IV SCH ×2 (07:00→12:36)
[2017-08-03 07:03] LABS: AUTOMATED NEUTROPHIL # 12.4 TH/MM3 (1.8-7.7); BASOPHIL % 0.1 % (0.0-2.0); EOSINOPHIL # 0.2 TH/MM3 (0-0.4); EOSINOPHIL % 1.2 % (0.0-4.0); HEMATOCRIT 26.6 % (35.0-46.0); LYMPH % 8.4 % (9.0-44.0); LYMPHOCYTE # 1.3 TH/MM3 (1.0-4.8); MEAN CELL VOLUME 91.8 FL (80.0-100.0); MEAN CORPUSCULAR HGB CONC 33.8 % (32.0-36.0); MEAN PLATELET VOLUME 7.5 FL (7.0-11.0); MONO % 9.9 % (0.0-8.0); MONOCYTE # 1.5 TH/MM3 (0-0.9); NEUT % 80.4 % (16.0-70.0); PLATELET COUNT 262 TH/MM3 (150-450); RED CELL DISTRIBUTION WIDTH 14.1 % (11.6-17.2); WHITE BLOOD COUNT 15.4 TH/MM3 (4.0-11.0)
[2017-08-03] MEDS: DOCUSATE SODIUM 50 MG/SENNA 8.6 MG TAB PO SCH ×2 (07:16→21:00)
[2017-08-03] MEDS: SODIUM CHLORIDE 0.9% FLUSH 10 ML FLUSH IV FLUSH SCH ×2 (07:17→21:44)
[2017-08-03 07:29] LABS: ALBUMIN 1.4 GM/DL (3.4-5.0); ALT (GPT) 15 U/L (10-53); AST (GOT) 12 U/L (15-37); BICARBONATE 21.7 MEQ/L (21.0-32.0); BLOOD UREA NITROGEN 18 MG/DL (7-18); CALCIUM 7.5 MG/DL (8.5-10.1); CHLORIDE 112 MEQ/L (98-107); CREATININE 1.18 MG/DL (0.50-1.00); GLOMERULAR FILTRATION RATE 49 ML/MIN (>89); GLUCOSE,RANDOM 80 MG/DL (74-106); MAGNESIUM 1.5 MG/DL (1.5-2.5); SODIUM (NA) 145 MEQ/L (136-145)
[2017-08-03 07:31] LABS: ALKALINE PHOSPHATASE 141 U/L (45-117); TOTAL BILIRUBIN ADULT 0.3 MG/DL (0.2-1.0); TOTAL PROTEIN 5.3 GM/DL (6.4-8.2)
[2017-08-03 08:09] LABS: BANDS 4 % (0-6); LYMPHOCYTES 9 % (9-44); METAMYELOCYTES 2 % (0-1); MONOCYTES 4 % (0-8); MYELOCYTES 1 % (0-0); NEUTROPHIL # MANUAL DIFF 13.4 TH/MM3 (1.8-7.7); POLYS (SEG NEUTROPHILS) 80 % (16-70)
--- NOTE | 2017-08-03 10:52 | HHI.FPPN ---
Subjective Remarks No acute events overnight. Still having chills and feels weak. Abdominal pain stable to improved. Headache improved. No chest pains or shortness of breath. (Jack Thrasher MD R2) Objective Vitals Vital Signs Date Time Temp Pulse Resp B/P (MAP) Pulse Ox O2 Delivery O2 Flow Rate FiO2 08/03/17 08:00 98.6 104 18 122/65 (84) 98 08/03/17 07:56 97 Nasal Cannula 21 08/03/17 04:00 98.3 107 18 135/64 (87) 100 08/03/17 00:00 98.5 105 18 136/67 (90) 96 08/02/17 20:42 Nasal Cannula 2.00 08/02/17 20:00 98.0 107 18 150/83 (105) 99 08/02/17 18:10 108 08/02/17 16:00 99.4 109 18 130/75 (93) 97 08/02/17 13:02 102 08/02/17 12:00 98.7 104 18 134/72 (92) 99 I/O 08/02/17 08/02/17 08/02/17 08/03/17 08/03/17 08/03/17 07:00 15:00 23:00 07:00 15:00 23:00 Intake Total 450 ml 460 ml 359 ml Balance 450 ml 460 ml 359 ml Intake Oral 450 ml IV Total 460 ml 359 ml # Voids 4 2 # Bowel Movements 0 (Jack Thrasher MD R2) Result Diagram: 08/03/17 0541 08/03/17 0541 Imaging Last Impressions Chest X-Ray 08/01/17 0000 Signed Impressions: Service Date/Time: Tuesday, August 01, 2017 10:25 - CONCLUSION: Bibasilar streakiness consistent with atelectasis and/or infiltrates. Travis Barrios MD Abdomen CT 08/01/17 0000 Signed Impressions: Service Date/Time: Tuesday, August 01, 2017 19:46 - CONCLUSION: 1. Swelling and edema of the left kidney without hydronephrosis or upper hydroureter or perceptible stone. Findings are of concern for left pyelonephritis in the proper clinical setting. 2. Effusions and consolidation of the visualized lung bases, new/worse. Moses Byrd MD Renal Ultrasound 07/31/17 0000 Signed Impressions: Service Date/Time: Monday, July 31, 2017 08:45 - CONCLUSION: 1. Subtle right-sided hydronephrosis without definite etiology on ultrasound. This finding is somewhat nonspecific and may reflect resolving hydronephrosis, developing hydronephrosis or reflux. 2. Normal sonographic appearance of the left kidney. Mauri Lowery MD Lung Scan-VQ Nuclear Medicine 07/31/17 0000 Signed Impressions: Service Date/Time: Monday, July 31, 2017 21:15 - CONCLUSION: Homogeneous perfusion. Low probability study for pulmonary embolus. Moses Byrd MD Abdomen/Pelvis CT 07/30/171951 Signed Impressions: Service Date/Time: Sunday, July 30, 2017 20:25 - CONCLUSION: 1. Mild perinephric edema without evidence of obstruction, nonspecific but pyelonephritis should be excluded clinically. 2. Mild hepatomegaly, nonspecific. 3. Mild atelectasis at both lung bases. 4. Otherwise negative. Moses Byrd MD Objective Remarks GEN: WDWN adult white female sitting up in bed appearing ill but in no acute distress Skin: Cool and dry. CV: Mildly tachycardic with regular rhythm. Normal S1/S2, no MRG Lungs: CTAB. Normal rate and effort. MSK: No peripheral cyanosis or edema Neuro: Awake, alert, oriented x3. Moves all extremities without difficulty. CN II-XII grossly intact. Normal speech. Medications and IVs Current Medications Medications (Trade) Dose Ordered Sig/Rosalie Route Start Time Stop Time Status Last Admin Sodium Chloride 1,000 ml @ 150 mls/hr Q6H40M IV 07/30/17 23:00 08/03/17 07:00 (NS Flush) 2 ml UNSCH PRN IV FLUSH 07/30/17 22:15 (NS Flush) 2 ml BID IV FLUSH 07/31/17 09:00 08/02/17 20:46 (Zofran Inj) 4 mg Q6H PRN IVP 07/30/17 22:15 08/03/17 05:09 (Restoril) 15 mg HS PRN PO 07/30/17 22:15 08/03/17 00:22 (Heparin Inj) 5,000 units Q12H SQ 07/31/17 09:00 Future Hold 08/02/17 09:16 (Narcan Inj) 0.4 mg UNSCH PRN IV PUSH 07/30/17 22:15 (Lea-Colace) 1 tab BID PO 07/31/17 09:00 08/01/17 20:53 (Milk Of Magnesia Liq) 30 ml Q12H PRN PO 07/30/17 22:15 (Senokot) 17.2 mg Q12H PRN PO 07/30/17 22:15 (Dulcolax Supp) 10 mg DAILY PRN RECTAL 07/30/17 22:15 (Lactulose Liq) 30 ml DAILY PRN PO 07/30/17 22:15 (Tylenol) 650 mg Q6H PRN PO 07/31/17 03:15 07/31/17 03:38 (Flexeril) 5 mg Q8HR PO 07/31/17 10:45 08/03/17 05:06 (Roxicodone) 5 mg Q6H PRN PO 07/31/17 10:45 08/03/17 05:06 (Morphine Inj) 4 mg Q3H PRN IV PUSH 08/01/17 20:30 08/02/17 16:46 Ceftriaxone Sodium 2000 mg/ Sodium Chloride 100 ml @ 200 mls/hr Q24H IV 08/02/17 18:00 08/02/17 18:30 (Jack Thrasher MD R2) A/P Assessment and Plan 46-year-old female with: (Jack Thrasher MD R2) Attending Attestation Patient seen and examined. Case reviewed and discussed Agree with plan of care as discussed with me and documented in the resident note. Additional Examination Points: NECK: Full ROM, no nuchal rigidity ABD: Soft, TTP diffusely without rebound. Hypoactive BS. +L CVA tenderness. No palpable organomegaly. EXT: There is trace/1+ symmetric bilateral LE edema to ankles and UE to elbows bilaterally (Venus Gray MD) Problem List: (1) Severe sepsis ICD Codes: A41.9 - Sepsis, unspecified organism; R65.20 - Severe sepsis without septic shock Status: Acute Plan: Currently stable, although still having chills. Afebrile overnight. End organ dysfunction, now improving Source is pyelonephritis No STD symptoms, in monogamous relationship for last year, does not use condoms HIV negative Hepatitis panel negative No contact with prisoners or travellers, no recent travel Blood culture growing E coli Repeat BCx NGTD x1 UCx growing E coli huang-sensitive Echocardiogram did not show any vegetations Flu negative Legionella / pneumococcal antigen negative Lactic acid reassuring at 1.1 -Consulted ID due to not having improved on Rocephin, appreciate recommendations -Narrowed antibiotics back to Rocephin (likely just needs more time to improve due to severe sepsis) -LP not needed -Normal saline 150 mL/h (2) Pyelonephritis ICD Codes: N12 - Tubulo-interstitial nephritis, not specified as acute or chronic Status: Acute Plan: See above (3) Sinus tachycardia ICD Codes: R00.0 - Tachycardia, unspecified Status: Acute Plan: Tachycardic since admission, now improving V/Q negative for PE in low risk patient EKG with sinus tachycardia CXR findings as above, possible CAP but more likely pleural effusion from renal inflammation UDS negative -Continue IV hydration (4) TAVO (acute kidney injury) ICD Codes: N17.9 - Acute kidney failure, unspecified Status: Acute Plan: Improving with IV fluids Renally dose meds Continue fluid resuscitation as above (5) Restless leg ICD Codes: G25.81 - Restless legs syndrome Status: Chronic Plan: Holding home medication at this time (6) Fibromyalgia ICD Codes: M79.7 - Fibromyalgia Status: Chronic Plan: Holding home medication at this time pending clinical improvement Oxycodone and morphine PRN for severe and breakthrough pain, respectively (7) Edema ICD Codes: R60.9 - Edema, unspecified Status: Chronic Plan: Holding home Lasix given TAVO Patient likely does not need to be on Lasix for this issue (8) FEN/PPX Status: Acute Plan: Fluids: Continue normal saline 150 mL/h Electrolytes: Monitor and replete PRN Nutrition: Regular diet Prophylaxis: Heparin Dispo: home pending resolution of sepsis (Jack Thrasher MD R2) Problem Qualifiers (1) Edema: Qualified Codes: R60.9 - Edema, unspecified Jack Thrasher MD R2 Aug 03, 2017 10:52 Venus Gray MD Aug 03, 2017 13:22
[2017-08-03] MEDS ORDERED: KETOROLAC TROMETHAMINE 30 MG/ML (IVP) VIAL IV PUSH PRN (13:15)
[2017-08-03] MEDS ORDERED: KETOROLAC TROMETHAMINE 30 MG/ML (IVP) VIAL IV PUSH ONE (13:15)
[2017-08-03] MEDS: cefTRIAXone INJ 2,000 MG in SODIUM CHLORIDE 0.9% INJ 100 ML IV SCH (17:46)
[2017-08-03] MEDS: HEPARIN SODIUM - SQ 10,000 UNITS/ML VIAL SQ SCH (21:43)
[2017-08-04] VITALS: BP 119/57; PULSE 102; RESP 18; TEMP 98.1; O2SAT 97
[2017-08-04 04:00] VITALS: BP 127/74; PULSE 95; RESP 18; TEMP 98.2; O2SAT 100
[2017-08-04] MEDS: ONDANSETRON HCL 4 MG/2 ML VIAL IVP PRN ×3 (05:10→18:17)
[2017-08-04] MEDS: CYCLOBENZAPRINE HCL 10 MG TAB PO SCH ×3 (05:10→22:29)
[2017-08-04] MEDS: SODIUM CHLORIDE 0.9% FLUSH 10 ML FLUSH IV FLUSH SCH ×2 (07:15→22:29)
[2017-08-04] MEDS: HEPARIN SODIUM - SQ 10,000 UNITS/ML VIAL SQ SCH ×2 (07:15→22:28)
[2017-08-04] MEDS: DOCUSATE SODIUM 50 MG/SENNA 8.6 MG TAB PO SCH ×2 (07:15→21:00)
[2017-08-04 07:16] LABS: AUTOMATED NEUTROPHIL # 8.5 TH/MM3 (1.8-7.7); BASOPHIL % 0.4 % (0.0-2.0); EOSINOPHIL # 0.3 TH/MM3 (0-0.4); EOSINOPHIL % 2.5 % (0.0-4.0); HEMATOCRIT 27.4 % (35.0-46.0); HEMOGLOBIN 9.5 GM/DL (11.6-15.3); LYMPH % 11.8 % (9.0-44.0); LYMPHOCYTE # 1.3 TH/MM3 (1.0-4.8); MEAN CELL VOLUME 91.4 FL (80.0-100.0); MEAN CORPUSCULAR HEMOGLOBIN 31.6 PG (27.0-34.0); MEAN CORPUSCULAR HGB CONC 34.5 % (32.0-36.0); MEAN PLATELET VOLUME 7.2 FL (7.0-11.0); MONO % 6.6 % (0.0-8.0); MONOCYTE # 0.7 TH/MM3 (0-0.9); NEUT % 78.7 % (16.0-70.0); PLATELET COUNT 317 TH/MM3 (150-450); RED CELL DISTRIBUTION WIDTH 14.2 % (11.6-17.2); WHITE BLOOD COUNT 10.8 TH/MM3 (4.0-11.0)
[2017-08-04 07:28] VITALS: BP 133/69; PULSE 89; RESP 16; TEMP 97.9; O2SAT 95
[2017-08-04 07:42] LABS: ALBUMIN 1.4 GM/DL (3.4-5.0); AST (GOT) 16 U/L (15-37); BICARBONATE 22.7 MEQ/L (21.0-32.0); BLOOD UREA NITROGEN 16 MG/DL (7-18); CALCIUM 7.6 MG/DL (8.5-10.1); CHLORIDE 113 MEQ/L (98-107); CREATININE 0.98 MG/DL (0.50-1.00); GLOMERULAR FILTRATION RATE 61 ML/MIN (>89); GLUCOSE,RANDOM 84 MG/DL (74-106); SODIUM (NA) 145 MEQ/L (136-145)
[2017-08-04 07:45] LABS: ALKALINE PHOSPHATASE 117 U/L (45-117); ALT (GPT) 17 U/L (10-53); TOTAL BILIRUBIN ADULT 0.3 MG/DL (0.2-1.0); TOTAL PROTEIN 5.1 GM/DL (6.4-8.2)
[2017-08-04] MEDS ORDERED: POTASSIUM CHLORIDE 10 MEQ CONTROLLED RELEASE TAB PO ONE ×2 (08:00→17:30)
[2017-08-04] MEDS ORDERED: POTASSIUM CHLORIDE 25 MEQ EFFERVESCENT TAB PO ONE (08:15)
[2017-08-04 09:57] LABS: BANDS 10 % (0-6); LYMPHOCYTES 6 % (9-44); METAMYELOCYTES 1 % (0-1); MONOCYTES 4 % (0-8); MYELOCYTES 3 % (0-0); NEUTROPHIL # MANUAL DIFF 9.5 TH/MM3 (1.8-7.7); POLYS (SEG NEUTROPHILS) 74 % (16-70)
[2017-08-04 09:58] LABS: OVALOCYTES 1+ (NORMAL); TOXIC GRANULATION 1+ (NORMAL)
[2017-08-04] MEDS ORDERED: ALBUTEROL SULFATE 90 MCG/ACT HFA 8 GM INHALER INH PRN (11:15)
[2017-08-04 11:20] VITALS: BP 130/60; PULSE 102; RESP 16; TEMP 98.4; O2SAT 97
[2017-08-04] MEDS ORDERED: RESP: ALBUTEROL 2.5 MG/IPRATROPIUM 0.5 MG NEB (PRN) NEB (13:00)
--- NOTE | 2017-08-04 14:46 | HHI.FPPN ---
Subjective Remarks Patient states overall she is improved. However, she states she has asthma and is in need of her inhaler currently. She would like some breathing treatments at this time. She does deny chest pain, fevers, chills. No dysuria. Abdominal pain is improved. She does have a mild headache. (Tigre Ivory MD R3) Objective Vitals Vital Signs Date Time Temp Pulse Resp B/P (MAP) Pulse Ox O2 Delivery O2 Flow Rate FiO2 08/04/17 11:53 21 08/04/17 11:20 98.4 102 16 130/60 (83) 97 08/04/17 07:28 97.9 89 16 133/69 (90) 95 08/04/17 04:00 98.2 95 18 127/74 (91) 100 08/04/17 00:00 98.1 102 18 119/57 (77) 97 08/03/17 22:06 21 08/03/17 20:00 98.2 100 18 127/68 (87) 100 08/03/17 16:00 97.3 88 18 131/69 (89) 97 I/O 08/03/17 08/03/17 08/03/17 08/04/17 08/04/17 08/04/17 07:00 15:00 23:00 07:00 15:00 23:00 Intake Total 900 ml 100 ml Output Total 500 ml 650 ml 800 ml Balance 900 ml -400 ml -650 ml -800 ml IV Total 900 ml 100 ml Output Urine Total 500 ml 650 ml 800 ml # Voids 2 (Tigre Ivory MD R3) Result Diagram: 08/04/1736 08/04/17 0636 Objective Remarks GEN: WDWN adult white female sitting up in bed in no acute distress Skin: Cool and dry. CV: Regular rate with regular rhythm. Normal S1/S2, no MRG Lungs: CTAB. Normal rate and effort. MSK: No peripheral cyanosis or edema Neuro: Awake, alert, oriented x3. Moves all extremities without difficulty. CN II-XII grossly intact. Normal speech. (Tigre Ivory MD R3) A/P Assessment and Plan 46-year-old female with: Discharge Planning Likely tomorrow or Sunday if continues with clinical improvement. (Tigre Ivory MD R3) Attending Attestation Patient seen and examined with the resident team. Case reviewed and discussed Agree with plan of care as discussed with me and documented in the resident note. (Venus Gray MD) Problem List: (1) Pyelonephritis ICD Codes: N12 - Tubulo-interstitial nephritis, not specified as acute or chronic Status: Acute Plan: Continue IV ceftriaxone Urine and blood culture growing E. coli on 07/30 Repeat blood culture 08/01 no growth to date. (2) Severe sepsis ICD Codes: A41.9 - Sepsis, unspecified organism; R65.20 - Severe sepsis without septic shock Status: Resolved Plan: Currently resolved Source is pyelonephritis No STD symptoms, in monogamous relationship for last year, does not use condoms HIV negative Hepatitis panel negative No contact with prisoners or travellers, no recent travel Blood culture growing E coli Repeat BCx NGTD x3 UCx growing E coli huang-sensitive Echocardiogram did not show any vegetations Flu negative Legionella / pneumococcal antigen negative Lactic acid reassuring at 1.1 -Consulted ID due to not having improved on Rocephin, appreciate recommendations -Narrowed antibiotics back to Rocephin (likely just needs more time to improve due to severe sepsis) -LP not needed -Normal saline 150 mL/h (3) Sinus tachycardia ICD Codes: R00.0 - Tachycardia, unspecified Status: Resolved Plan: Currently resolved. V/Q negative for PE in low risk patient EKG with sinus tachycardia CXR findings as above, possible CAP but more likely pleural effusion from renal inflammation UDS negative -Continue IV hydration (4) TAVO (acute kidney injury) ICD Codes: N17.9 - Acute kidney failure, unspecified Status: Resolved Plan: Currently resolved. Continue fluid resuscitation as above (5) Restless leg ICD Codes: G25.81 - Restless legs syndrome Status: Chronic Plan: Holding home medication at this time (6) Fibromyalgia ICD Codes: M79.7 - Fibromyalgia Status: Chronic Plan: Holding home medication at this time pending clinical improvement Oxycodone and morphine PRN for severe and breakthrough pain, respectively (7) Edema ICD Codes: R60.9 - Edema, unspecified Status: Chronic Plan: Holding home Lasix given TAVO Patient likely does not need to be on Lasix for this issue (8) Asthma ICD Codes: J45.909 - Unspecified asthma, uncomplicated Status: Chronic Plan: Albuterol and DuoNeb as needed (9) FEN/PPX Status: Acute Plan: Fluids: Continue normal saline 150 mL/h Electrolytes: Monitor and replete PRN Nutrition: Regular diet Prophylaxis: Heparin (Tigre Ivory MD R3) Problem Qualifiers (1) Edema: Qualified Codes: R60.9 - Edema, unspecified (2) Asthma: Qualified Codes: J45.30 - Mild persistent asthma, uncomplicated Tigre Ivory MD R3 Aug 04, 2017 14:45 Venus Gray MD Aug 06, 2017 11:27
[2017-08-04 15:32] VITALS: BP 133/68; PULSE 100; RESP 18; TEMP 99.1; O2SAT 100
[2017-08-04] MEDS: cefTRIAXone INJ 2,000 MG in SODIUM CHLORIDE 0.9% INJ 100 ML IV SCH (18:19)
[2017-08-04 20:00] VITALS: BP 117/78; PULSE 98; RESP 18; TEMP 99.7; O2SAT 99
[2017-08-04] MEDS: TEMAZEPAM 15 MG CAP PO PRN (22:26)
[2017-08-05] VITALS: BP 119/60; PULSE 101; RESP 18; TEMP 99.2; O2SAT 98
[2017-08-05] MEDS: ONDANSETRON HCL 4 MG/2 ML VIAL IVP PRN ×4 (00:49→17:52)
[2017-08-05] MEDS: SODIUM CHLORIDE 0.9% FLUSH 10 ML FLUSH IV FLUSH PRN ×2 (00:50→17:53)
[2017-08-05 05:00] VITALS: BP 120/75; PULSE 95; RESP 18; TEMP 98.7; O2SAT 100
[2017-08-05 06:07] LABS: AUTOMATED NEUTROPHIL # 9.3 TH/MM3 (1.8-7.7); BASOPHIL % 0.2 % (0.0-2.0); EOSINOPHIL # 0.3 TH/MM3 (0-0.4); EOSINOPHIL % 2.6 % (0.0-4.0); HEMATOCRIT 26.1 % (35.0-46.0); HEMOGLOBIN 8.9 GM/DL (11.6-15.3); LYMPHOCYTE # 1.4 TH/MM3 (1.0-4.8); MEAN CELL VOLUME 91.6 FL (80.0-100.0); MEAN CORPUSCULAR HEMOGLOBIN 31.4 PG (27.0-34.0); MEAN CORPUSCULAR HGB CONC 34.3 % (32.0-36.0); MEAN PLATELET VOLUME 7.5 FL (7.0-11.0); MONO % 5.6 % (0.0-8.0); MONOCYTE # 0.7 TH/MM3 (0-0.9); NEUT % 79.6 % (16.0-70.0); PLATELET COUNT 361 TH/MM3 (150-450); RED BLOOD COUNT 2.85 MIL/MM3 (4.00-5.30); RED CELL DISTRIBUTION WIDTH 13.6 % (11.6-17.2); WHITE BLOOD COUNT 11.7 TH/MM3 (4.0-11.0)
[2017-08-05] MEDS: CYCLOBENZAPRINE HCL 10 MG TAB PO SCH ×3 (06:07→21:55)
[2017-08-05 06:38] LABS: ALBUMIN 1.6 GM/DL (3.4-5.0); AST (GOT) 18 U/L (15-37); BICARBONATE 23.7 MEQ/L (21.0-32.0); BLOOD UREA NITROGEN 9 MG/DL (7-18); CALCIUM 7.9 MG/DL (8.5-10.1); CHLORIDE 110 MEQ/L (98-107); CREATININE 0.84 MG/DL (0.50-1.00); GLOMERULAR FILTRATION RATE 72 ML/MIN (>89); GLUCOSE,RANDOM 84 MG/DL (74-106); SODIUM (NA) 143 MEQ/L (136-145)
[2017-08-05 06:39] LABS: ALT (GPT) 15 U/L (10-53)
[2017-08-05 06:41] LABS: ALKALINE PHOSPHATASE 118 U/L (45-117); TOTAL BILIRUBIN ADULT 0.2 MG/DL (0.2-1.0); TOTAL PROTEIN 5.3 GM/DL (6.4-8.2)
[2017-08-05 07:29] LABS: BANDS 8 % (0-6); LYMPHOCYTES 11 % (9-44); METAMYELOCYTES 1 % (0-1); MONOCYTES 2 % (0-8); MYELOCYTES 3 % (0-0); NEUTROPHIL # MANUAL DIFF 10.2 TH/MM3 (1.8-7.7); POLYS (SEG NEUTROPHILS) 75 % (16-70)
[2017-08-05 08:00] VITALS: BP 125/67; PULSE 100; RESP 18; TEMP 98.5; O2SAT 99
[2017-08-05] MEDS: HEPARIN SODIUM - SQ 10,000 UNITS/ML VIAL SQ SCH ×2 (08:33→21:55)
[2017-08-05] MEDS: DOCUSATE SODIUM 50 MG/SENNA 8.6 MG TAB PO SCH ×2 (08:38→21:00)
[2017-08-05] MEDS: SODIUM CHLORIDE 0.9% FLUSH 10 ML FLUSH IV FLUSH SCH ×2 (08:47→21:55)
[2017-08-05] MEDS ORDERED: POTASSIUM CHLORIDE 25 MEQ EFFERVESCENT TAB PO ONE (11:30)
[2017-08-05] MEDS ORDERED: MAGNESIUM SULFATE 1 GM PREMIX 100 ML IV ONE (11:30)
--- NOTE | 2017-08-05 11:49 | HHI.FPPN ---
Subjective Remarks No acute events overnight. Feels much better in the last couple days. No N/V. Persistent flank pain. No fevers. No headache. No CP/SOB. (Jack Thrasher MD R2) Objective Vitals Vital Signs Date Time Temp Pulse Resp B/P (MAP) Pulse Ox O2 Delivery O2 Flow Rate FiO2 08/05/17 08:00 98.5 100 18 125/67 (86) 99 08/05/17 05:00 98.7 95 18 120/75 (90) 100 08/05/17 00:00 99.2 101 18 119/60 (79) 98 08/04/17 21:02 21 08/04/17 20:00 99.7 98 18 117/78 (91) 99 08/04/17 15:32 99.1 100 18 133/68 (89) 100 08/04/17 11:53 21 I/O 08/04/17 08/04/17 08/04/17 08/05/17 08/05/17 08/05/17 07:00 15:00 23:00 07:00 15:00 23:00 Intake Total 960 ml Output Total 650 ml 800 ml 750 ml 1300 ml 900 ml Balance -650 ml -800 ml 210 ml -1300 ml -900 ml Intake Oral 960 ml Output Urine Total 650 ml 800 ml 750 ml 1300 ml 900 ml # Voids 1 (Jack Thrasher MD R2) Result Diagram: 08/05/17 0330 08/05/17 0330 Imaging Last Impressions Chest X-Ray 08/01/17 0000 Signed Impressions: Service Date/Time: Tuesday, August 01, 2017 10:25 - CONCLUSION: Bibasilar streakiness consistent with atelectasis and/or infiltrates. Travis Barrios MD Abdomen CT 08/01/17 0000 Signed Impressions: Service Date/Time: Tuesday, August 01, 2017 19:46 - CONCLUSION: 1. Swelling and edema of the left kidney without hydronephrosis or upper hydroureter or perceptible stone. Findings are of concern for left pyelonephritis in the proper clinical setting. 2. Effusions and consolidation of the visualized lung bases, new/worse. Moses Byrd MD Renal Ultrasound 07/31/17 0000 Signed Impressions: Service Date/Time: Monday, July 31, 2017 08:45 - CONCLUSION: 1. Subtle right-sided hydronephrosis without definite etiology on ultrasound. This finding is somewhat nonspecific and may reflect resolving hydronephrosis, developing hydronephrosis or reflux. 2. Normal sonographic appearance of the left kidney. Mauri Lowery MD Lung Scan-VQ Nuclear Medicine 07/31/17 0000 Signed Impressions: Service Date/Time: Monday, July 31, 2017 21:15 - CONCLUSION: Homogeneous perfusion. Low probability study for pulmonary embolus. Moses Byrd MD Abdomen/Pelvis CT 07/30/17 195 Signed Impressions: Service Date/Time: Sunday, July 30, 2017 20:25 - CONCLUSION: 1. Mild perinephric edema without evidence of obstruction, nonspecific but pyelonephritis should be excluded clinically. 2. Mild hepatomegaly, nonspecific. 3. Mild atelectasis at both lung bases. 4. Otherwise negative. Moses Byrd MD Objective Remarks GEN: WDWN adult white female sitting up in bed in no acute distress Skin: Cool and dry. CV: Regular rate with regular rhythm. Normal S1/S2, no MRG Lungs: CTAB. Normal rate and effort. MSK: No peripheral cyanosis or edema. Mild CVA tenderness on left. Neuro: Awake, alert, oriented x3. Moves all extremities without difficulty. CN II-XII grossly intact. Normal speech. Medications and IVs Current Medications Medications (Trade) Dose Ordered Sig/Rosalie Route Start Time Stop Time Status Last Admin (NS Flush) 2 ml UNSCH PRN IV FLUSH 07/30/17 22:15 08/05/17 00:50 (NS Flush) 2 ml BID IV FLUSH 07/31/17 09:00 08/05/17 08:47 (Zofran Inj) 4 mg Q6H PRN IVP 07/30/17 22:15 08/05/17 06:32 (Restoril) 15 mg HS PRN PO 07/30/17 22:15 08/04/17 22:26 (Heparin Inj) 5,000 units Q12H SQ 07/31/17 09:00 Future hold 08/05/17 08:33 (Narcan Inj) 0.4 mg UNSCH PRN IV PUSH 07/30/17 22:15 (Lea-Colace) 1 tab BID PO 07/31/17 09:00 08/01/17 20:53 (Milk Of Magnesia Liq) 30 ml Q12H PRN PO 07/30/17 22:15 (Senokot) 17.2 mg Q12H PRN PO 07/30/17 22:15 (Dulcolax Supp) 10 mg DAILY PRN RECTAL 07/30/17 22:15 (Lactulose Liq) 30 ml DAILY PRN PO 07/30/17 22:15 (Tylenol) 650 mg Q6H PRN PO 07/31/17 03:15 07/31/17 03:38 (Flexeril) 5 mg Q8HR PO 07/31/17 10:45 08/05/17 06:07 (Roxicodone) 5 mg Q6H PRN PO 07/31/17 10:45 08/05/17 06:31 (Morphine Inj) 4 mg Q3H PRN IV PUSH 08/01/17 20:30 08/02/17 16:46 (Toradol Inj) 15 mg Q6H PRN IV PUSH 08/03/17 13:15 08/08/17 13:14 08/03/17 23:51 (Proair Hfa Inh) 2 puff Q4H PRN INH 08/04/17 11:15 08/04/17 12:17 (Duoneb Neb) 1 ampule Q2HR NEB PRN NEB 08/04/17 13:00 Magnesium Sulfate/ Dextrose 100 ml @ 100 mls/hr ONCE ONCE IV 08/05/17 11:30 08/05/17 12:29 UNV (K-Lyte Cl Eff) 50 meq ONCE ONCE PO 08/05/17 11:30 08/05/17 11:31 UNV (Bactrim Ds 800-160 Mg) 1 tab Q12HR PO 08/05/17 21:00 UNV (Jack Thrasher MD R2) A/P Assessment and Plan 46-year-old female with: Discharge Planning Likely tomorrow or Sunday if continues with clinical improvement. (Jack Thrasher MD R2) Attending Attestation Patient seen and examined. Case reviewed and discussed Agree with plan of care as discussed with me and documented in the resident note. (Venus Gray MD) Problem List: (1) Pyelonephritis ICD Codes: N12 - Tubulo-interstitial nephritis, not specified as acute or chronic Status: Acute Plan: Urine and blood culture growing E. coli on 07/30 Repeat blood culture 08/01 [id number] Change to oral Bactrim-DS 1 tab BID (2) Severe sepsis ICD Codes: A41.9 - Sepsis, unspecified organism; R65.20 - Severe sepsis without septic shock Status: Resolved Plan: Severe sepsis resolved Source is pyelonephritis, see above No STD symptoms, in monogamous relationship for last year, does not use condoms HIV negative Hepatitis panel negative No contact with prisoners or travellers, no recent travel Echocardiogram did not show any vegetations Flu negative Legionella / pneumococcal antigen negative Lactic acid reassuring at 1.1 -Consulted ID due to not having improved on Rocephin, appreciate recommendations -Narrowed antibiotics back to Rocephin (likely just needs more time to improve due to severe sepsis) -LP not needed (3) Restless leg ICD Codes: G25.81 - Restless legs syndrome Status: Chronic Plan: Holding home medication at this time (4) Fibromyalgia ICD Codes: M79.7 - Fibromyalgia Status: Chronic Plan: Holding home medication at this time pending clinical improvement Oxycodone and morphine PRN for severe and breakthrough pain, respectively (5) Edema ICD Codes: R60.9 - Edema, unspecified Status: Chronic Plan: Holding home Lasix given TAVO Patient likely does not need to be on Lasix for this issue (6) Asthma ICD Codes: J45.909 - Unspecified asthma, uncomplicated Status: Chronic Plan: Albuterol and DuoNeb as needed (7) FEN/PPX Status: Acute Plan: Fluids: PO only Electrolytes: Monitor and replete PRN Nutrition: Regular diet Prophylaxis: Heparin Dispo: Home 4/30 AM if WBC stable or improved on Bactrim (Jack Thrasher MD R2) Problem Qualifiers (1) Edema: Qualified Codes: R60.9 - Edema, unspecified (2) Asthma: Qualified Codes: J45.30 - Mild persistent asthma, uncomplicated Jack Thrasher MD R2 Aug 05, 2017 11:49 Venus Gray MD Aug 06, 2017 10:55
[2017-08-05 12:00] VITALS: BP 128/69; PULSE 98; RESP 18; TEMP 98.5; O2SAT 96
--- NOTE | 2017-08-05 15:16 | HHI.IDPN ---
Subjective Subjective Remarks chart was reviewed Pt is feeling ok no headache co L side pain afebrile Antibiotics CFTX Allergies: Coded Allergies: penicillin G (Unverified Allergy, Mild, 07/30/17) prochlorperazine (Unverified Allergy, Mild, [place], 07/30/17) ciprofloxacin (Verified Allergy, Unknown, 07/30/17) pecan nut (Verified Allergy, Unknown, 07/30/17) walnut (Verified Allergy, Unknown, 07/30/17) Objective . Vital Signs Date Time Temp Pulse Resp B/P (MAP) Pulse Ox O2 Delivery O2 Flow Rate FiO2 08/05/17 12:00 98.5 98 18 128/69 (88) 96 08/05/17 08:00 98.5 100 18 125/67 (86) 99 08/05/17 05:00 98.7 95 18 120/75 (90) 100 08/05/17 00:00 99.2 101 18 119/60 (79) 98 08/04/17 21:02 21 08/04/17 20:00 99.7 98 18 117/78 (91) 99 08/04/17 15:32 99.1 100 18 133/68 (89) 100 08/05/17 08/05/17 08/06/17 15:00 23:00 07:00 Intake Total 100 ml Output Total 900 ml Balance -800 ml IV Total 100 ml Output Urine Total 900 ml . Laboratory Tests Test 08/04/17 06:36 08/05/17 03:30 White Blood Count 10.8 TH/MM3 11.7 TH/MM3 Red Blood Count 3.00 MIL/MM3 2.85 MIL/MM3 Hemoglobin 9.5 GM/DL 8.9 GM/DL Hematocrit 27.4 % 26.1 % Mean Corpuscular Volume 91.4 FL 91.6 FL Mean Corpuscular Hemoglobin 31.6 PG 31.4 PG Mean Corpuscular Hemoglobin Concent 34.5 % 34.3 % Red Cell Distribution Width 14.2 % 13.6 % Platelet Count 317 TH/MM3 361 TH/MM3 Mean Platelet Volume 7.2 FL 7.5 FL Neutrophils (%) (Auto) 78.7 % 79.6 % Lymphocytes (%) (Auto) 11.8 % 12.0 % Monocytes (%) (Auto) 6.6 % 5.6 % Eosinophils (%) (Auto) 2.5 % 2.6 % Basophils (%) (Auto) 0.4 % 0.2 % Neutrophils # (Auto) 8.5 TH/MM3 9.3 TH/MM3 Lymphocytes # (Auto) 1.3 TH/MM3 1.4 TH/MM3 Monocytes # (Auto) 0.7 TH/MM3 0.7 TH/MM3 Eosinophils # (Auto) 0.3 TH/MM3 0.3 TH/MM3 Basophils # (Auto) 0.0 TH/MM3 0.0 TH/MM3 CBC Comment AUTO DIFF AUTO DIFF Differential Total Cells Counted 100 100 Neutrophils % (Manual) 74 % 75 % Band Neutrophils % 10 % 8 % Lymphocytes % 6 % 11 % Monocytes % 4 % 2 % Eosinophils % 2 % Neutrophils # (Manual) 9.5 TH/MM3 10.2 TH/MM3 Metamyelocytes 1 % 1 % Myelocytes 3 % 3 % Differential Comment FINAL DIFF MANUAL FINAL DIFF MANUAL Toxic Granulation 1+ Platelet Estimate NORMAL NORMAL Platelet Morphology Comment NORMAL NORMAL Ovalocytes 1+ Red Cell Morphology Comment NORMAL Laboratory Tests Test 08/04/17 06:36 08/05/17 03:30 Blood Urea Nitrogen 16 MG/DL 9 MG/DL Creatinine 0.98 MG/DL 0.84 MG/DL Random Glucose 84 MG/DL 84 MG/DL Total Protein 5.1 GM/DL 5.3 GM/DL Albumin 1.4 GM/DL 1.6 GM/DL Calcium Level 7.6 MG/DL 7.9 MG/DL Alkaline Phosphatase 117 U/L 118 U/L Aspartate Amino Transf (AST/SGOT) 16 U/L 18 U/L Alanine Aminotransferase (ALT/SGPT) 17 U/L 15 U/L Total Bilirubin 0.3 MG/DL 0.2 MG/DL Sodium Level 145 MEQ/L 143 MEQ/L Potassium Level 3.0 MEQ/L 3.2 MEQ/L Chloride Level 113 MEQ/L 110 MEQ/L Carbon Dioxide Level 22.7 MEQ/L 23.7 MEQ/L Anion Gap 9 MEQ/L 9 MEQ/L Estimat Glomerular Filtration Rate 61 ML/MIN 72 ML/MIN Imaging Last Impressions Chest X-Ray 08/01/17 0000 Signed Impressions: Service Date/Time: Tuesday, August 01, 2017 10:25 - CONCLUSION: Bibasilar streakiness consistent with atelectasis and/or infiltrates. Travis Barrios MD Abdomen CT 08/01/17 0000 Signed Impressions: Service Date/Time: Tuesday, August 01, 2017 19:46 - CONCLUSION: 1. Swelling and edema of the left kidney without hydronephrosis or upper hydroureter or perceptible stone. Findings are of concern for left pyelonephritis in the proper clinical setting. 2. Effusions and consolidation of the visualized lung bases, new/worse. Moses Byrd MD Renal Ultrasound 07/31/17 0000 Signed Impressions: Service Date/Time: Monday, July 31, 2017 08:45 - CONCLUSION: 1. Subtle right-sided hydronephrosis without definite etiology on ultrasound. This finding is somewhat nonspecific and may reflect resolving hydronephrosis, developing hydronephrosis or reflux. 2. Normal sonographic appearance of the left kidney. Mauri Lowery MD Lung Scan-V Nuclear Medicine 07/31/17 0000 Signed Impressions: Service Date/Time: Monday, July 31, 2017 21:15 - CONCLUSION: Homogeneous perfusion. Low probability study for pulmonary embolus. Moses Byrd MD Abdomen/Pelvis CT [id number]/30/171951 Signed Impressions: Service Date/Time: Sunday, July 30, 2017 20:25 - CONCLUSION: 1. Mild perinephric edema without evidence of obstruction, nonspecific but pyelonephritis should be excluded clinically. 2. Mild hepatomegaly, nonspecific. 3. Mild atelectasis at both lung bases. 4. Otherwise negative. Moses Byrd MD Physical Exam GENERAL: This is a well-nourished, well-developed patient, in no apparent distress. SKIN: No rashes, ecchymoses or lesions. Cool and dry. HEAD: Atraumatic. Normocephalic. No temporal or scalp tenderness. EYES: Pupils equal round and reactive. Extraocular motions intact. No scleral icterus. No injection or drainage. NECK: Trachea midline. Supple, nontender, no meningeal signs. CARDIOVASCULAR: Regular rate and rhythm without murmurs, gallops, or rubs. RESPIRATORY: Clear to auscultation. Breath sounds equal bilaterally. No wheezes , rales, or rhonchi. GASTROINTESTINAL: Abdomen soft, diffuse tenderness. ; no palpable bladder distention Marked L CVA tenderness MUSCULOSKELETAL: Extremities without clubbing, cyanosis, or edema. No joint tenderness, effusion, or edema noted. NEUROLOGICAL: Awake and alert. Cranial nerves II through XII intact. Motor and sensory grossly within normal limits. Five out of 5 muscle strength in all muscle groups. Normal speech. Psych cooperative IV line sites with no e/o infection Laboratory Assessment & Plan Remarks Sepsis E.coli bacteremia E.coli Pyelonephritis Acute renal failure:prerenal vs sepsis. - resolved Lung basilar infiltrates ? atelectasis vs early pneumonia Chronic neck pain Fibromyalgia. HIV negative Recs: cont Ceftriaxone IV (CTX-M negative on verigene testing in blood and Urine E.coli huang sensitive) can switch to oral levaquin to complete treatment Lenka Murillo MD Aug 05, 2017 15:16
[2017-08-05 16:00] VITALS: BP 144/82; PULSE 97; RESP 18; TEMP 98.4; O2SAT 98
[2017-08-05 20:00] VITALS: BP 132/62; PULSE 99; RESP 18; TEMP 99.1; O2SAT 98
[2017-08-05] MEDS: SULFAMETHOXAZOLE-TRIMETHOPRIM DS 800-160 MG TAB PO SCH (21:54)
[2017-08-06] VITALS: BP 143/73; PULSE 99; RESP 16; TEMP 97.5; O2SAT 92
[2017-08-06] MEDS: ONDANSETRON HCL 4 MG/2 ML VIAL IVP PRN ×2 (00:51→06:55)
[2017-08-06] MEDS: CYCLOBENZAPRINE HCL 10 MG TAB PO SCH ×2 (06:54→15:15)
[2017-08-06] MEDS: SODIUM CHLORIDE 0.9% FLUSH 10 ML FLUSH IV FLUSH PRN (06:57)
[2017-08-06] MEDS: HEPARIN SODIUM - SQ 10,000 UNITS/ML VIAL SQ SCH (07:55)
[2017-08-06] MEDS: SULFAMETHOXAZOLE-TRIMETHOPRIM DS 800-160 MG TAB PO SCH (07:55)
[2017-08-06] MEDS: DOCUSATE SODIUM 50 MG/SENNA 8.6 MG TAB PO SCH (07:55)
[2017-08-06 08:00] VITALS: BP 128/65; PULSE 104; RESP 19; TEMP 98.5; O2SAT 95
[2017-08-06] MEDS: SODIUM CHLORIDE 0.9% FLUSH 10 ML FLUSH IV FLUSH SCH (08:02)
[2017-08-06 08:21] LABS: AUTOMATED NEUTROPHIL # 6.9 TH/MM3 (1.8-7.7); BASOPHIL % 0.4 % (0.0-2.0); EOSINOPHIL # 0.2 TH/MM3 (0-0.4); EOSINOPHIL % 1.9 % (0.0-4.0); HEMATOCRIT 27.4 % (35.0-46.0); HEMOGLOBIN 9.2 GM/DL (11.6-15.3); LYMPH % 12.3 % (9.0-44.0); LYMPHOCYTE # 1.1 TH/MM3 (1.0-4.8); MEAN CELL VOLUME 91.9 FL (80.0-100.0); MEAN CORPUSCULAR HEMOGLOBIN 31.1 PG (27.0-34.0); MEAN CORPUSCULAR HGB CONC 33.8 % (32.0-36.0); MEAN PLATELET VOLUME 7.4 FL (7.0-11.0); MONO % 5.5 % (0.0-8.0); MONOCYTE # 0.5 TH/MM3 (0-0.9); NEUT % 79.9 % (16.0-70.0); PLATELET COUNT 407 TH/MM3 (150-450); RED BLOOD COUNT 2.98 MIL/MM3 (4.00-5.30); RED CELL DISTRIBUTION WIDTH 13.9 % (11.6-17.2); WHITE BLOOD COUNT 8.7 TH/MM3 (4.0-11.0)
[2017-08-06 08:31] LABS: BICARBONATE 24.8 MEQ/L (21.0-32.0); CALCIUM 7.5 MG/DL (8.5-10.1); CREATININE 0.79 MG/DL (0.50-1.00); MAGNESIUM 1.9 MG/DL (1.5-2.5); PHOSPHORUS 2.8 MG/DL (2.5-4.9)
--- NOTE | 2017-08-06 08:41 | HHI.FPPN ---
Subjective Remarks No acute events overnight. Feels well today except for occasional flank pain on the left. Ambulating without difficulty. No dysuria/frequency. No CP/SOB. Objective Vitals Vital Signs Date Time Temp Pulse Resp B/P (MAP) Pulse Ox O2 Delivery O2 Flow Rate FiO2 08/06/17 00:00 97.5 99 16 143/73 (96) 92 08/05/17 20:00 99.1 99 18 132/62 (85) 98 08/05/17 16:00 98.4 97 18 144/82 (102) 98 08/05/17 12:00 98.5 98 18 128/69 (88) 96 I/O 08/05/17 08/05/17 08/05/17 08/06/17 08/06/17 08/06/17 07:00 15:00 23:00 07:00 15:00 23:00 Intake Total 100 ml Output Total 1300 ml 900 ml 700 ml 400 ml Balance -1300 ml -800 ml -700 ml -400 ml IV Total 100 ml Output Urine Total 1300 ml 900 ml 700 ml 400 ml # Voids 1 # Bowel Movements 1 Result Diagram: 08/06/17 0652 08/06/17 0652 Imaging Last Impressions Chest X-Ray 08/01/17 0000 Signed Impressions: Service Date/Time: Tuesday, August 01, 2017 10:25 - CONCLUSION: Bibasilar streakiness consistent with atelectasis and/or infiltrates. Travis Barrios MD Abdomen CT 08/01/17 0000 Signed Impressions: Service Date/Time: Tuesday, August 01, 2017 19:46 - CONCLUSION: 1. Swelling and edema of the left kidney without hydronephrosis or upper hydroureter or perceptible stone. Findings are of concern for left pyelonephritis in the proper clinical setting. 2. Effusions and consolidation of the visualized lung bases, new/worse. Moses Byrd MD Renal Ultrasound 07/31/17 0000 Signed Impressions: Service Date/Time: Monday, July 31, 2017 08:45 - CONCLUSION: 1. Subtle right-sided hydronephrosis without definite etiology on ultrasound. This finding is somewhat nonspecific and may reflect resolving hydronephrosis, developing hydronephrosis or reflux. 2. Normal sonographic appearance of the left kidney. Mauir Lowery MD Lung Scan-VQ Nuclear Medicine 07/31/17 0000 Signed Impressions: Service Date/Time: Monday, July 31, 2017 21:15 - CONCLUSION: Homogeneous perfusion. Low probability study for pulmonary embolus. Moses Byrd MD Abdomen/Pelvis CT 07/30/171951 Signed Impressions: Service Date/Time: Sunday, July 30, 2017 20:25 - CONCLUSION: 1. Mild perinephric edema without evidence of obstruction, nonspecific but pyelonephritis should be excluded clinically. 2. Mild hepatomegaly, nonspecific. 3. Mild atelectasis at both lung bases. 4. Otherwise negative. Moses Byrd MD Objective Remarks GEN: WDWN adult white female sitting up in bed in no acute distress Skin: Cool and dry. CV: Regular rate with regular rhythm. Normal S1/S2, no MRG Lungs: CTAB. Normal rate and effort. Abd: Soft, non-distended, mildly tender to palpation at L flank. MSK: No peripheral cyanosis or edema. Mild CVA tenderness on left. Neuro: Awake, alert, oriented x3. Moves all extremities without difficulty. CN II-XII grossly intact. Normal speech. Medications and IVs Current Medications Medications (Trade) Dose Ordered Sig/Rosalie Route Start Time Stop Time Status Last Admin (NS Flush) 2 ml UNSCH PRN IV FLUSH 07/30/17 22:15 08/06/17 06:57 (NS Flush) 2 ml BID IV FLUSH 07/31/17 09:00 08/06/17 08:02 (Zofran Inj) 4 mg Q6H PRN IVP 07/30/17 22:15 08/06/17 06:55 (Restoril) 15 mg HS PRN PO 07/30/17 22:15 08/04/17 22:26 (Heparin Inj) 5,000 units Q12H SQ 07/31/17 09:00 Future hold 08/06/17 07:55 (Narcan Inj) 0.4 mg UNSCH PRN IV PUSH 07/30/17 22:15 (Lea-Colace) 1 tab BID PO 07/31/17 09:00 08/01/17 20:53 (Milk Of Magnesia Liq) 30 ml Q12H PRN PO 07/30/17 22:15 (Senokot) 17.2 mg Q12H PRN PO 07/30/17 22:15 (Dulcolax Supp) 10 mg DAILY PRN RECTAL 07/30/17 22:15 (Lactulose Liq) 30 ml DAILY PRN PO 07/30/17 22:15 (Tylenol) 650 mg Q6H PRN PO 07/31/17 03:15 07/31/17 03:38 (Flexeril) 5 mg Q8HR PO 07/31/17 10:45 08/06/17 06:54 (Roxicodone) 5 mg Q6H PRN PO 07/31/17 10:45 08/06/17 06:55 (Morphine Inj) 4 mg Q3H PRN IV PUSH 08/01/17 20:30 08/02/17 16:46 (Toradol Inj) 15 mg Q6H PRN IV PUSH 08/03/17 13:15 08/08/17 13:14 08/03/17 23:51 (Proair Hfa Inh) 2 puff Q4H PRN INH 08/04/17 11:15 08/04/17 12:17 (Duoneb Neb) 1 ampule Q2HR NEB PRN NEB 08/04/17 13:00 (Bactrim Ds 800-160 Mg) 1 tab Q12HR PO 08/05/17 21:00 08/06/17 07:55 A/P Assessment and Plan 46-year-old female with: Problem List: (1) Pyelonephritis ICD Codes: N12 - Tubulo-interstitial nephritis, not specified as acute or chronic Status: Acute Plan: Urine and blood culture growing E. coli on 07/30 Repeat blood culture 08/01 [id number] ID consulted, appreciate recommendations -Recommend Levaquin on discharge to complete 14 days of antibiotics from last negative blood culture (2) Severe sepsis ICD Codes: A41.9 - Sepsis, unspecified organism; R65.20 - Severe sepsis without septic shock Status: Resolved Plan: Severe sepsis resolved Source is pyelonephritis, see above No STD symptoms, in monogamous relationship for last year, does not use condoms HIV negative Hepatitis panel negative No contact with prisoners or travellers, no recent travel Echocardiogram did not show any vegetations Flu negative Legionella / pneumococcal antigen negative Lactic acid reassuring at 1.1 -See above plan (3) Restless leg ICD Codes: G25.81 - Restless legs syndrome Status: Chronic Plan: Holding home medication at this time (4) Fibromyalgia ICD Codes: M79.7 - Fibromyalgia Status: Chronic Plan: Holding home medication at this time pending clinical improvement Oxycodone and morphine PRN for severe and breakthrough pain, respectively (5) Edema ICD Codes: R60.9 - Edema, unspecified Status: Chronic Plan: Holding home Lasix given TAVO Patient likely does not need to be on Lasix for this issue (6) Asthma ICD Codes: J45.909 - Unspecified asthma, uncomplicated Status: Chronic Plan: Albuterol and DuoNeb as needed (7) FEN/PPX Status: Acute Plan: Fluids: PO only Electrolytes: Monitor and replete PRN Nutrition: Regular diet Prophylaxis: Heparin Dispo: Home today Problem Qualifiers (1) Edema: Qualified Codes: R60.9 - Edema, unspecified (2) Asthma: Qualified Codes: J45.30 - Mild persistent asthma, uncomplicated Jack Thrasher MD R2 Aug 06, 2017 8:41 am
--- NOTE | 2017-08-06 08:46 | HHI.DCPOC ---
Discharge Care Plan Diagnosis: (1) Severe sepsis (2) Pyelonephritis (3) TAVO (acute kidney injury) (4) Sinus tachycardia Goals to Promote Your Health * To prevent worsening of your condition and complications * To maintain your health at the optimal level Directions to Meet Your Goals Take your medications as prescribed Follow your dietary instruction Follow activity as directed Keep your appointments as scheduled Take your immunizations and boosters as scheduled If your symptoms worsen call your PCP, if no PCP go to Urgent Care Center or Emergency Room Smoking is Dangerous to Your Health. Avoid second hand smoke Call the 24-hour hour crisis hotline for domestic abuse at Jack Thrasher MD R2 Aug 06, 2017 08:46
[2017-08-06 09:47] VITALS: O2SAT 94
[2017-08-06] MEDS ORDERED: LEVOFLOXACIN 750 MG TAB PO ONE (10:00)
[2017-08-06 12:00] VITALS: BP 137/64; PULSE 105; RESP 17; TEMP 99; O2SAT 99
[2017-08-06] MEDS ORDERED: LEVO750T3 PO (12:22)
--- NOTE | 2017-08-06 14:43 | HHI.PR ---
Addendum to Inpatient Note Addendum Reason: Additional Documentation Additional Information recd call from : clinically improved. DC home on Levaquin but try first dose in house to assess tolerance to meds. If not tolerated ok to switch to oral bactrim. Duration 14 days. Will sign off please call back if any change in clinical condition or questions. Brianna Yates MD Aug 06, 2017 14:43
--- NOTE | 2017-08-06 15:12 | HHI.DS ---
Discharge Summary Admission Date Jul 30, 2017 at 9:37 pm Discharge Date: Aug 06, 2017 Admitting Diagnosis Severe sepsis, pyelonephritis (1) Pyelonephritis Diagnosis: Principal ICD Codes: N12 - Tubulo-interstitial nephritis, not specified as acute or chronic Status: Acute (2) Severe sepsis Diagnosis: Principal ICD Codes: A41.9 - Sepsis, unspecified organism; R65.20 - Severe sepsis without septic shock Status: Resolved Consultants Infectious Disease - Dr. Yates Brief History 46 year old female presents with fevers and a constellation of symptoms since . Patient states that her symptoms started on . 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 She had chills and pain in her hips and back. She also was having neck stiffness and pain. She laid down and slept for 2-3 hours. She then went back to work at her second job at [employer]; she started feeling better after taking 4 Advil. Later that night she went to [place] to stay with her boyfriend. The next morning, Sunday, she felt "pretty bad." She was feeling feverish and had the chills. She started driving home and developed blurry vision. She called out of work that they and had a fever of 103. Sunday and Sunday her symptoms did not seem to improve. She threw up one time on Sunday in 1-2 times on Sunday. She tried to go to work on Sunday from 01-07, and her clients told her that she did not look good. She took a nap and felt super weak. She has been having abdominal pain, 9 out of 10 nonradiating, since this morning. She has also been feeling bloated. She denies dysuria, vaginal itching, hematuria, lower abdominal/bladder tenderness. She has been taking Lasix because "she swells up. CBC/BMP: 08/06/17 0652 08/06/17 0652 Significant Findings Laboratory Tests Test 08/04/17 06:36 08/05/17 03:30 08/06/17 06:52 Red Blood Count 3.00 MIL/MM3 (4.00-5.30) 2.85 MIL/MM3 (4.00-5.30) 2.98 MIL/MM3 (4.00-5.30) Hemoglobin 9.5 GM/DL (11.6-15.3) 8.9 GM/DL (11.6-15.3) 9.2 GM/DL (11.6-15.3) Hematocrit 27.4 % (35.0-46.0) 26.1 % (35.0-46.0) 27.4 % (35.0-46.0) Neutrophils (%) (Auto) 78.7 % (16.0-70.0) 79.6 % (16.0-70.0) 79.9 % (16.0-70.0) Neutrophils # (Auto) 8.5 TH/MM3 (1.8-7.7) 9.3 TH/MM3 (1.8-7.7) Neutrophils % (Manual) 74 % (16-70) 75 % (16-70) Band Neutrophils % 10 % (0-6) 8 % (0-6) Lymphocytes % 6 % (9-44) Neutrophils # (Manual) 9.5 TH/MM3 (1.8-7.7) 10.2 TH/MM3 (1.8-7.7) Myelocytes 3 % (0-0) 3 % (0-0) Toxic Granulation 1+ (NORMAL) Ovalocytes 1+ (NORMAL) Total Protein 5.1 GM/DL (6.4-8.2) 5.3 GM/DL (6.4-8.2) Albumin 1.4 GM/DL (3.4-5.0) 1.6 GM/DL (3.4-5.0) Calcium Level 7.6 MG/DL (8.5-10.1) 7.9 MG/DL (8.5-10.1) 7.5 MG/DL (8.5-10.1) Potassium Level 3.0 MEQ/L (3.5-5.1) 3.2 MEQ/L (3.5-5.1) Chloride Level 113 MEQ/L (98-107) 110 MEQ/L (98-107) 108 MEQ/L (98-107) Estimat Glomerular Filtration Rate 61 ML/MIN (>89) 72 ML/MIN (>89) 78 ML/MIN (>89) White Blood Count 11.7 TH/MM3 (4.0-11.0) Alkaline Phosphatase 118 U/L (45-117) Imaging Last Impressions Chest X-Ray 08/01/17 0000 Signed Impressions: Service Date/Time: Tuesday, August 01, 2017 10:25 - CONCLUSION: Bibasilar streakiness consistent with atelectasis and/or infiltrates. Travis Barrios MD Abdomen CT 08/01/17 0000 Signed Impressions: Service Date/Time: Tuesday, August 01, 2017 19:46 - CONCLUSION: 1. Swelling and edema of the left kidney without hydronephrosis or upper hydroureter or perceptible stone. Findings are of concern for left pyelonephritis in the proper clinical setting. 2. Effusions and consolidation of the visualized lung bases, new/worse. Moses Byrd MD Renal Ultrasound 07/31/17 0000 Signed Impressions: Service Date/Time: Monday, July 31, 2017 08:45 - CONCLUSION: 1. Subtle right-sided hydronephrosis without definite etiology on ultrasound. This finding is somewhat nonspecific and may reflect resolving hydronephrosis, developing hydronephrosis or reflux. 2. Normal sonographic appearance of the left kidney. Mauri Lowery MD Lung Scan-V Nuclear Medicine 07/31/17 0000 Signed Impressions: Service Date/Time: Monday, July 31, 2017 21:15 - CONCLUSION: Homogeneous perfusion. Low probability study for pulmonary embolus. Moses Byrd MD Abdomen/Pelvis CT 07/30/171951 Signed Impressions: Service Date/Time: Sunday, July 30, 2017 20:25 - CONCLUSION: 1. Mild perinephric edema without evidence of obstruction, nonspecific but pyelonephritis should be excluded clinically. 2. Mild hepatomegaly, nonspecific. 3. Mild atelectasis at both lung bases. 4. Otherwise negative. Moses Byrd MD PE at Discharge GEN: WDWN adult white female sitting up in bed in no acute distress Skin: Cool and dry. CV: Regular rate with regular rhythm. Normal S1/S2, no MRG Lungs: CTAB. Normal rate and effort. Abd: Soft, non-distended, mildly tender to palpation at L flank. MSK: No peripheral cyanosis or edema. Mild CVA tenderness on left. Neuro: Awake, alert, oriented x3. Moves all extremities without difficulty. CN II-XII grossly intact. Normal speech. Hospital Course healthy 46 yo female admitted for severe sepsis with urinary source. Empiric treatment with Rocephin initiated. End organ dysfunction began to resolve with IV fluids and antibiotics however patient continued to spike fevers. Antibiotic coverage broadened to Zosyn and Infectious Disease consulted. ID resumed coverage with Rocephin when urine and blood cultures showed huang-sensitive E coli. Patient improved a couple days thereafter and was transitioned to oral antibiotics. She tolerated the oral medication well and was cleared for D/C on . Pt Condition on Discharge: Good Discharge Disposition: Discharge Home Discharge Instructions DIET: Follow Instructions for: As Tolerated, No Restrictions Activities you can perform: Regular-No Restrictions Follow up Referrals: PCP Follow-up - 1 Month with Nilda Valladares PCP Follow-up New Medications: Levofloxacin (Levofloxacin) 750 Mg Tablet 750 MG PO DAILY for Infection for 9 Days, #9 TAB 0 Refills Continued Medications: Aspirin/Acetaminophen/Caffeine (Excedrin Migraine Caplet) 250 Mg-250 Mg-65 Mg Tablet Budesonide-Formoterol Inh (Symbicort Inh) 80-4.5 Mcg/Act Aero 1 PUFF INH Q12HR for Asthma Management, #1 INHALER 0 Refills Cyclobenzaprine (Flexeril) 10 Mg Tab 10 MG PO TID for Muscle Spasm, #90 TAB 0 Refills Furosemide (Furosemide) 40 Mg Tab 40 MG PO DAILY, #30 TAB 0 Refills Gabapentin (Gabapentin) 600 Mg Tab 600 MG PO BID, #60 TAB 0 Refills Hydrocodone-Acetaminophen (Hydrocodone-Acetaminophen) 5-325 mg Tab 1 TAB PO Q6H PRN for PAIN, TAB 0 Refills Ibuprofen (Ibuprofen) 800 Mg Tab 800 MG PO Q6HR PRN for PAIN, #40 TAB 0 Refills Pramipexole (Pramipexole) 0.25 Mg Tab 0.25 MG PO HS for Parkinson Disease Mgmt, #30 TAB 0 Refills Jack Thrasher MD R2 Aug 06, 2017 3:12 pm
[2017-08-06 16:00] VITALS: BP 128/65; PULSE 93; RESP 19; TEMP 98.9; O2SAT 97
== END 2017-08-06 18:06 | disposition home or self-care (01) | DRG 872 ==
LOC: NEPE 17:35 → NEDA 21:37 → NEPFCDU 22:58 → N05A 08-01 16:04
PROVIDERS: ADMIT Family Medicine; ATTEND Family Medicine
DX: A41.51 Sepsis due to Escherichia coli [E. coli] (principal); N17.9 Acute kidney failure, unspecified; N12 Tubulo-interstitial nephritis, not specified as acute or chronic; R65.20 Severe sepsis without septic shock; M79.7 Fibromyalgia; E87.6 Hypokalemia; G25.81 Restless legs syndrome; J45.909 Unspecified asthma, uncomplicated; F12.90 Cannabis use, unspecified, uncomplicated; R60.9 Edema, unspecified; M54.2 Cervicalgia; M19.90 Unspecified osteoarthritis, unspecified site; Z79.891 Long term (current) use of opiate analgesic; Z79.899 Other long term (current) drug therapy; Z88.0 Allergy status to penicillin; Z88.1 Allergy status to other antibiotic agents; Z91.018 Allergy to other foods
CPT/HCPCS: 71045; 71046; 74150; 74176; 76775; 76937; 78582; 80048; 80053; 80074; 80202; 80307; 81001; 83605; 83690; 83735; 84100; 84702; 85007; 85025; 85027; 85379; 85610; 85730; 86703; 87040; 87077; 87086; 87186; 87205; 87449; 87804; 93005; 93306; 94150; 96365; 96375; A9540; A9567; J0456; J0692; J0696; J1644; J1885; J2270; J2405; J3370; J3475; J7030; J7050